=== PATIENT | female | born 1960 | race Caucasian/White ===

== ENCOUNTER 2020-06-12 16:16 | Inpatient (IN) ==
[2020-06-12] MEDS ORDERED: Naloxone 0.4 MG/ML INJ IVP PRN (20:33)
[2020-06-12] MEDS ORDERED: *HR* Promethazine 25 MG/ML VIAL IM PRN (20:33)
[2020-06-12] MEDS ORDERED: Ondansetron 4 MG/2 ML VIAL IVP PRN (20:33)
[2020-06-12] MEDS ORDERED: Ipratropium/Albuterol Neb 3 ML IH PRN (21:05)
[2020-06-12] MEDS ORDERED: Azithromycin 500 MG in 0.9 % Sodium Chloride 250 ML IVPB ONE (21:06)
[2020-06-12] MEDS ORDERED: cefTRIAXone 1,000 MG in Water for inj. (sterile) 10 ML IVP ONE (21:06)
[2020-06-12] MEDS ORDERED: Perflutren Lipid Microsphere 1.3 ML in 0.9 % Sodium Chloride 8.7 ML IVP PRN (21:11)
[2020-06-12] MEDS ORDERED: D5% in Water 1,000 ML IVC PRN (22:15)
[2020-06-12] MEDS ORDERED: *HR* Dextrose 50 % in Water (Vial) 50 ML VIAL IVP PRN (22:15)
[2020-06-12] MEDS ORDERED: Dextrose Gel 15 GM/37.5 ML TUBE PO PRN ×2 (22:15)
[2020-06-12 23:04] LABS: Adenovirus Not Detected (Not Detect); Bordetella Pertussis Not Detected (Not Detect); Chlamydophila pneumoniae Not Detected (Not Detect); Coronavirus 229E Not Detected (Not Detect); Coronavirus HKU1 Not Detected (Not Detect); Coronavirus NL63 Not Detected (Not Detect); Coronavirus OC43 Not Detected (Not Detect); Human Metapneumovirus Not Detected (Not Detect); Human Rhinovirus/Enterovirus Not Detected (Not Detect); Influenza A Subtype 2009 H1 Not Detected (Not Detect); Influenza B Not Detected (Not Detect); Mycoplasma pneumoniae Not Detected (Not Detect); Parainfluenza Virus 1 Not Detected (Not Detect); Parainfluenza Virus 2 Not Detected (Not Detect); Parainfluenza Virus 3 Not Detected (Not Detect); Parainfluenza Virus 4 Not Detected (Not Detect); Respiratory Syncytial Virus Not Detected (Not Detect); SARS-CoV-2 Not Detected (Not Detect)
[2020-06-13] MEDS: Ipratropium/Albuterol Neb 3 ML IH SCH ×7 (00:14→22:58)
[2020-06-13] MEDS: Insulin LISPRO 300 UNITS/3 ML VIAL SUBQ SCH ×5 (01:01→23:33)
[2020-06-13] MEDS: Melatonin 3 MG TABLET PO PRN (01:54)
[2020-06-13 04:49] LABS: Eosinophils % 1.9 %
[2020-06-13 04:51] LABS: Basophils # 0.1 K/mcL (0.0-0.2); Basophils % 0.5 %; Eosinophils # 0.2 K/mcL (0.0-0.6); Hematocrit 40.6 % (35.3-44.9); Hemoglobin 10.7 g/dL (11.5-15.4); Immature Granulocytes % 1.8 % (0-4); Lymphocytes % 8.5 %; Mean Corpuscular HGB Conc 26.4 g/dL (31.6-35.5); Mean Corpuscular Hemoglobin 25.2 pg (28.0-33.3); Mean Corpuscular Volume 95.8 fL (83.0-100.0); Mean Platelet Volume 11.2 fL (9.4-12.4); Monocytes % 8.4 %; Neutrophils # 9.3 K/mcL (1.6-8.9); Nucleated Red Blood Cells 0.4 /100 WBC (0); Platelet Count 262 K/mcL (140-400); Red Blood Count 4.24 M/mcL (3.82-4.97); Red Cell Distribution Width 17.9 % (11.5-14.5); Segmented Neutrophils % 78.9 %; White Blood Count 11.8 K/mcL (4.3-11.1)
[2020-06-13 05:00] LABS: INR 1.1; Prothrombin Time 12.6 Seconds (9.4-12.1)
[2020-06-13 05:08] LABS: Alanine Aminotransferase 9 Units/L (7-52); Albumin 3.7 g/dL (3.5-5.7); Albumin/Globulin Ratio 1.2 (1.1-2.2); Alkaline Phosphatase 87 Units/L (34-104); Aspartate Amino Transferase 10 Units/L (13-39); BUN/Creatinine Ratio 40 (6-26); Bilirubin,Total 0.4 mg/dL (0.3-1.0); Blood Urea Nitrogen 21 mg/dL (8-23); Calcium 8.9 mg/dL (8.6-10.3); Carbon Dioxide 43 mEq/L (23-29); Chloride 100 mEq/L (98-107); Chol/HDL Ratio 2.1 (0-4.9); Cholesterol 112 mg/dL (< 200); Globulin 3.1 g/dL (2.4-3.5); Glucose 141 mg/dL (70-105); HDL Cholesterol 53 mg/dL (40-59); LDL Cholesterol,Calculated 35 mg/dL (< 100); Magnesium 2.2 mg/dL (1.6-2.6); Osmolality,Calculated 305 (280-300); Potassium 4.3 mEq/L (3.5-5.1); Sodium 145 mEq/L (136-145); Total Protein 6.8 g/dL (6.4-8.9); Triglycerides 121 mg/dL (< 150); eGFR For African Americans > 60 (> 60); eGFR For Non-African Americans > 60 (> 60)
[2020-06-13 05:10] LABS: Platelet Estimate Normal (Normal); Stomatocytes 1+ (Not Present)
[2020-06-13 05:11] LABS: Anisocytosis 1+ (Not Present); Hypochromasia Present (Not Present); Poikilocytosis 1+ (Not Present); Toxic Granulation Present (Not Present)
[2020-06-13] MEDS: *HR* Enoxaparin 40 MG/0.4 ML SYRINGE SQ SCH (06:01)
[2020-06-13 06:28] LABS: ABG Base Excess 17 mEq/L (-2 to 3); ABG HCO3 52 mEq/L (21-27); ABG Oxygen Saturation 89 % (95-98); ABG PCO2 132 mmHg (35-45); ABG PO2 75 mmHg (85-104); ABG TCO2 > 50 mEq/L (20-26)
[2020-06-13] MEDS ORDERED: *HR* LORazepam 2 MG/ML VIAL ONE ×2 (06:45→18:03)
[2020-06-13] MEDS: *HR* LORazepam 2 MG/ML VIAL IVP ONE ×2 (06:49→06:50)
[2020-06-13] MEDS: Budesonide/Formoterol 160/4.5 1 PUFF INH IH SCH (07:43)
[2020-06-13] MEDS: Furosemide 40 MG/4 ML VIAL IVP SCH ×2 (08:18→21:14)
[2020-06-13] MEDS: Dexamethasone Sodium Phos/PF 10 MG/ML VIAL IVP SCH (08:18)
[2020-06-13] MEDS: cefTRIAXone 1,000 MG in Water for inj. (sterile) 10 ML IVP SCH (08:19)
[2020-06-13 09:22] LABS: ABG Base Excess 20 mEq/L (-2 to 3); ABG HCO3 54 mEq/L (21-27); ABG Oxygen Saturation 91 % (95-98); ABG PCO2 123 mmHg (35-45); ABG PH 7.25 pH Units (7.32-7.45); ABG PO2 80 mmHg (85-104); ABG TCO2 > 50 mEq/L (20-26); Blood Gas VT 500 cc
[2020-06-13] MEDS: Aspirin 81 MG TAB.CHEW PO SCH (09:30)
[2020-06-13] MEDS: Dexmedetomidine HCl 400 MCG/100 ML MLS IVC SCH ×3 (10:26→23:12)
[2020-06-13 11:28] LABS: ABG Base Excess 21 mEq/L (-2 to 3); ABG HCO3 53 mEq/L (21-27); ABG Oxygen Saturation 90 % (95-98); ABG PCO2 105 mmHg (35-45); ABG PH 7.31 pH Units (7.32-7.45); ABG PO2 71 mmHg (85-104); ABG TCO2 > 50 mEq/L (20-26)
[2020-06-13 14:32] LABS: ABG Base Excess 21 mEq/L (-2 to 3); ABG HCO3 52 mEq/L (21-27); ABG Oxygen Saturation 87 % (95-98); ABG PCO2 88 mmHg (35-45); ABG PH 7.37 pH Units (7.32-7.45); ABG PO2 59 mmHg (85-104); ABG TCO2 > 50 mEq/L (20-26); Blood Gas Modality avaps; Blood Gas VT 500 cc
[2020-06-13] MEDS ORDERED: Isovue-370 500 ML BOTTLE IVP ONE (16:58)
[2020-06-13] MEDS ORDERED: *HR* LORazepam 2 MG/ML VIAL IVP ONE (18:04)
[2020-06-13 18:38] LABS: ABG Base Excess 20 mEq/L (-2 to 3); ABG HCO3 50 mEq/L (21-27); ABG Oxygen Saturation 92 % (95-98); ABG PCO2 80 mmHg (35-45); ABG PO2 69 mmHg (85-104); ABG TCO2 > 50 mEq/L (20-26); Blood Gas Modality avaps; Blood Gas VT 550 cc
[2020-06-13] MEDS: Famotidine 20 MG TABLET PO SCH (21:14)
[2020-06-13] MEDS: Azithromycin 500 MG in 0.9 % Sodium Chloride 250 ML IVPB SCH (21:14)
[2020-06-13] MEDS ORDERED: HydrOXYzine 100 MG/2 ML VIAL IM PRN (23:33)
[2020-06-14] MEDS ORDERED: *HR* LORazepam 2 MG/ML VIAL IVP STA (02:15)
[2020-06-14] MEDS ORDERED: *HR* LORazepam 2 MG/ML VIAL ONE (02:18)
[2020-06-14] MEDS: Dexmedetomidine HCl 400 MCG/100 ML MLS IVC SCH ×6 (02:36→22:12)
[2020-06-14] MEDS: Ipratropium/Albuterol Neb 3 ML IH SCH ×6 (04:06→23:26)
[2020-06-14 05:26] LABS: Hematocrit 37.5 % (35.3-44.9); Hemoglobin 10.4 g/dL (11.5-15.4); Mean Corpuscular HGB Conc 27.7 g/dL (31.6-35.5); Mean Corpuscular Hemoglobin 25.4 pg (28.0-33.3); Mean Corpuscular Volume 91.5 fL (83.0-100.0); Mean Platelet Volume 11.6 fL (9.4-12.4); Platelet Count 213 K/mcL (140-400); Red Cell Distribution Width 17.3 % (11.5-14.5); White Blood Count 9.6 K/mcL (4.3-11.1)
[2020-06-14 05:53] LABS: BUN/Creatinine Ratio 33 (6-26); Blood Urea Nitrogen 22 mg/dL (8-23); Calcium 8.8 mg/dL (8.6-10.3); Carbon Dioxide > 45 mEq/L (23-29); Chloride 92 mEq/L (98-107); Glucose 218 mg/dL (70-105); Osmolality,Calculated 304 (280-300); Potassium 4.1 mEq/L (3.5-5.1); Sodium 142 mEq/L (136-145); eGFR For African Americans > 60 (> 60); eGFR For Non-African Americans > 60 (> 60)
[2020-06-14] MEDS: *HR* Enoxaparin 40 MG/0.4 ML SYRINGE SQ SCH (06:34)
[2020-06-14] MEDS: Insulin LISPRO 300 UNITS/3 ML VIAL SUBQ SCH ×3 (06:42→16:42)
[2020-06-14] MEDS: Tiotropium 10 INH DOSE IH SCH (07:53)
[2020-06-14] MEDS: Budesonide/Formoterol 160/4.5 1 PUFF INH IH SCH (08:02)
[2020-06-14] MEDS: Furosemide 40 MG/4 ML VIAL IVP SCH ×3 (08:05→19:34)
[2020-06-14] MEDS: Famotidine 20 MG TABLET PO SCH ×3 (08:05→19:34)
[2020-06-14] MEDS: Aspirin 81 MG TAB.CHEW PO SCH (08:05)
[2020-06-14] MEDS: Dexamethasone Sodium Phos/PF 10 MG/ML VIAL IVP SCH (08:05)
[2020-06-14] MEDS: cefTRIAXone 1,000 MG in Water for inj. (sterile) 10 ML IVP SCH (08:06)
[2020-06-14] MEDS ORDERED: LOSARTAN POTASSIUM 50 MG PO SCH (09:00)
[2020-06-14] MEDS: Acetaminophen 325 MG TABLET PO PRN ×2 (19:19→19:34)
[2020-06-14] MEDS: Melatonin 3 MG TABLET PO PRN ×2 (19:20→19:34)
[2020-06-14] MEDS: Azithromycin 500 MG in 0.9 % Sodium Chloride 250 ML IVPB SCH (22:13)
[2020-06-15] MEDS: Insulin LISPRO 300 UNITS/3 ML VIAL SUBQ SCH ×4 (01:25→17:39)
[2020-06-15 03:22] LABS: Basophils % 0.4 %; Hematocrit 40.2 % (35.3-44.9)
[2020-06-15 03:24] LABS: Eosinophils % 0.4 %; Hemoglobin 11.3 g/dL (11.5-15.4); Immature Granulocytes % 0.9 % (0-4); Lymphocytes % 12.2 %; Mean Corpuscular HGB Conc 28.1 g/dL (31.6-35.5); Mean Corpuscular Hemoglobin 25.5 pg (28.0-33.3); Mean Corpuscular Volume 90.5 fL (83.0-100.0); Mean Platelet Volume 11.1 fL (9.4-12.4); Monocytes # 0.7 K/mcL (0.0-1.3); Monocytes % 8.8 %; Neutrophils # 6.3 K/mcL (1.6-8.9); Platelet Count 243 K/mcL (140-400); Red Blood Count 4.44 M/mcL (3.82-4.97); Red Cell Distribution Width 17.1 % (11.5-14.5); Segmented Neutrophils % 77.3 %; White Blood Count 8.2 K/mcL (4.3-11.1)
[2020-06-15 03:29] LABS: VBG HCO3 47 mEq/L (21-27); VBG PCO2 73 mmHg (41-51); VBG PH 7.41 pH Units (7.32-7.42); VBG PO2 170 mmHg (25-50)
[2020-06-15] MEDS: Dexmedetomidine HCl 400 MCG/100 ML MLS IVC SCH (03:50)
[2020-06-15] MEDS: Ipratropium/Albuterol Neb 3 ML IH SCH ×6 (04:04→23:13)
[2020-06-15 04:09] LABS: BUN/Creatinine Ratio 41 (6-26); Blood Urea Nitrogen 24 mg/dL (8-23); Calcium 9.3 mg/dL (8.6-10.3); Carbon Dioxide 45 mEq/L (23-29); Chloride 92 mEq/L (98-107); Glucose 202 mg/dL (70-105); Osmolality,Calculated 304 (280-300); Potassium 3.9 mEq/L (3.5-5.1); Sodium 142 mEq/L (136-145); eGFR For African Americans > 60 (> 60); eGFR For Non-African Americans > 60 (> 60)
[2020-06-15 04:16] LABS: Hypochromasia Present (Not Present)
[2020-06-15 04:17] LABS: Anisocytosis 1+ (Not Present); Platelet Estimate Normal (Normal); Stomatocytes 1+ (Not Present)
[2020-06-15] MEDS: *HR* Enoxaparin 40 MG/0.4 ML SYRINGE SQ SCH (05:18)
[2020-06-15] MEDS: Tiotropium 10 INH DOSE IH SCH (07:44)
[2020-06-15] MEDS: Budesonide/Formoterol 160/4.5 1 PUFF INH IH SCH (07:44)
[2020-06-15] MEDS: Acetaminophen 325 MG TABLET PO PRN (10:54)
[2020-06-15] MEDS: Dexamethasone Sodium Phos/PF 10 MG/ML VIAL IVP SCH (10:55)
[2020-06-15] MEDS: Aspirin 81 MG TAB.CHEW PO SCH (10:55)
[2020-06-15] MEDS: Furosemide 40 MG/4 ML VIAL IVP SCH ×2 (10:55→20:20)
[2020-06-15] MEDS: cefTRIAXone 1,000 MG in Water for inj. (sterile) 10 ML IVP SCH (10:55)
[2020-06-15] MEDS: Famotidine 20 MG TABLET PO SCH ×2 (10:56→20:19)
[2020-06-15] MEDS: Melatonin 3 MG TABLET PO PRN (20:19)
[2020-06-15] MEDS: Azithromycin 500 MG in 0.9 % Sodium Chloride 250 ML IVPB SCH (21:54)
[2020-06-16] MEDS: Insulin LISPRO 300 UNITS/3 ML VIAL SUBQ SCH ×5 (00:14→21:09)
[2020-06-16 03:10] LABS: Hematocrit 42.5 % (35.3-44.9); Mean Corpuscular HGB Conc 28.2 g/dL (31.6-35.5); Mean Corpuscular Hemoglobin 25.1 pg (28.0-33.3); Mean Corpuscular Volume 88.9 fL (83.0-100.0); Mean Platelet Volume 11.5 fL (9.4-12.4); Platelet Count 318 K/mcL (140-400); Red Blood Count 4.78 M/mcL (3.82-4.97); Red Cell Distribution Width 17.8 % (11.5-14.5); White Blood Count 13.9 K/mcL (4.3-11.1)
[2020-06-16 03:15] LABS: BUN/Creatinine Ratio 40 (6-26); Blood Urea Nitrogen 23 mg/dL (8-23); Carbon Dioxide 45 mEq/L (23-29); Chloride 92 mEq/L (98-107); Glucose 168 mg/dL (70-105); Osmolality,Calculated 306 (280-300); Potassium 3.3 mEq/L (3.5-5.1); Sodium 144 mEq/L (136-145); eGFR For African Americans > 60 (> 60); eGFR For Non-African Americans > 60 (> 60)
[2020-06-16] MEDS: Ipratropium/Albuterol Neb 3 ML IH SCH ×5 (04:02→20:30)
[2020-06-16 05:23] LABS: ABG Base Excess 16 mEq/L (-2 to 3); ABG HCO3 45 mEq/L (21-27); ABG Oxygen Saturation 89 % (95-98); ABG PCO2 71 mmHg (35-45); ABG PH 7.41 pH Units (7.32-7.45); ABG PO2 59 mmHg (85-104); ABG TCO2 47 mEq/L (20-26)
[2020-06-16] MEDS: *HR* Enoxaparin 40 MG/0.4 ML SYRINGE SQ SCH (05:39)
[2020-06-16] MEDS: predniSONE 20 MG TABLET PO SCH (07:57)
[2020-06-16] MEDS: Aspirin 81 MG TAB.CHEW PO SCH (07:57)
[2020-06-16] MEDS: Famotidine 20 MG TABLET PO SCH ×2 (07:57→21:10)
[2020-06-16] MEDS: Furosemide 40 MG/4 ML VIAL IVP SCH ×2 (07:58→21:08)
[2020-06-16] MEDS: cefTRIAXone 1,000 MG in Water for inj. (sterile) 10 ML IVP SCH (07:59)
[2020-06-16] MEDS: Tiotropium 10 INH DOSE IH SCH (08:03)
[2020-06-16] MEDS: Budesonide/Formoterol 160/4.5 1 PUFF INH IH SCH (08:04)
[2020-06-16] MEDS: Acetaminophen 325 MG TABLET PO PRN (12:16)
[2020-06-16] MEDS ORDERED: Dextrose Gel 15 GM/37.5 ML TUBE PO PRN (12:25)
[2020-06-17] MEDS: Ipratropium/Albuterol Neb 3 ML IH SCH ×7 (00:20→23:24)
[2020-06-17] MEDS: *HR* Enoxaparin 40 MG/0.4 ML SYRINGE SQ SCH (05:23)
[2020-06-17 05:26] LABS: Basophils % 0.2 %; Eosinophils # 0.2 K/mcL (0.0-0.6); Eosinophils % 1.2 %; Hematocrit 41.6 % (35.3-44.9); Hemoglobin 11.4 g/dL (11.5-15.4); Immature Granulocytes % 0.7 % (0-4); Lymphocytes # 1.6 K/mcL (0.6-4.6); Lymphocytes % 11.4 %; Mean Corpuscular HGB Conc 27.4 g/dL (31.6-35.5); Mean Corpuscular Hemoglobin 24.5 pg (28.0-33.3); Mean Corpuscular Volume 89.5 fL (83.0-100.0); Mean Platelet Volume 10.3 fL (9.4-12.4); Monocytes # 1.2 K/mcL (0.0-1.3); Monocytes % 8.8 %; Platelet Count 249 K/mcL (140-400); Red Blood Count 4.65 M/mcL (3.82-4.97); Red Cell Distribution Width 17.6 % (11.5-14.5); Segmented Neutrophils % 77.7 %; White Blood Count 13.7 K/mcL (4.3-11.1)
[2020-06-17 05:49] LABS: Neutrophils # 10.6 K/mcL (1.6-8.9)
[2020-06-17 06:08] LABS: BUN/Creatinine Ratio 42 (6-26); Blood Urea Nitrogen 22 mg/dL (8-23); Carbon Dioxide > 45 mEq/L (23-29); Chloride 90 mEq/L (98-107); Glucose 148 mg/dL (70-105); Osmolality,Calculated 302 (280-300); Potassium 2.9 mEq/L (3.5-5.1); Sodium 143 mEq/L (136-145); eGFR For African Americans > 60 (> 60); eGFR For Non-African Americans > 60 (> 60)
[2020-06-17 06:28] LABS: Anisocytosis 1+ (Not Present); Hypochromasia Present (Not Present); Platelet Estimate Normal (Normal)
[2020-06-17] MEDS: Tiotropium 10 INH DOSE IH SCH (07:36)
[2020-06-17] MEDS: Budesonide/Formoterol 160/4.5 1 PUFF INH IH SCH (07:40)
[2020-06-17] MEDS ORDERED: Potassium Chloride 40 MEQ, Lidocaine 1% 2 ML in 0.9 % Sodium Chloride 500 ML IVPB ONE (07:46)
[2020-06-17] MEDS ORDERED: Potassium Chloride Elixir 20 MEQ/15 ML UDC PO ONE (07:46)
[2020-06-17] MEDS: Aspirin 81 MG TAB.CHEW PO SCH (08:36)
[2020-06-17] MEDS: predniSONE 20 MG TABLET PO SCH (08:36)
[2020-06-17] MEDS: Famotidine 20 MG TABLET PO SCH ×2 (08:36→21:54)
[2020-06-17] MEDS: cefTRIAXone 1,000 MG in Water for inj. (sterile) 10 ML IVP SCH (08:36)
[2020-06-17] MEDS: Furosemide 40 MG/4 ML VIAL IVP SCH ×2 (08:36→21:56)
[2020-06-17] MEDS: Insulin LISPRO 300 UNITS/3 ML VIAL SUBQ SCH ×4 (08:41→21:56)
[2020-06-17 14:49] LABS: Adenovirus Not Detected (Not Detect); Bordetella Pertussis Not Detected (Not Detect); Chlamydophila pneumoniae Not Detected (Not Detect); Coronavirus 229E Not Detected (Not Detect); Coronavirus HKU1 Not Detected (Not Detect); Coronavirus NL63 Not Detected (Not Detect); Coronavirus OC43 Not Detected (Not Detect); Human Metapneumovirus Not Detected (Not Detect); Human Rhinovirus/Enterovirus Not Detected (Not Detect); Influenza A Subtype 2009 H1 Not Detected (Not Detect); Influenza B Not Detected (Not Detect); Mycoplasma pneumoniae Not Detected (Not Detect); Parainfluenza Virus 1 Not Detected (Not Detect); Parainfluenza Virus 2 Not Detected (Not Detect); Parainfluenza Virus 3 Not Detected (Not Detect); Parainfluenza Virus 4 Not Detected (Not Detect); Respiratory Syncytial Virus Not Detected (Not Detect); SARS-CoV-2 Not Detected (Not Detect)
[2020-06-17] MEDS: Acetaminophen 325 MG TABLET PO PRN (15:16)
[2020-06-18 02:14] LABS: Basophils % 0.2 %; Eosinophils % 0.6 %; Red Cell Distribution Width 17.3 % (11.5-14.5)
[2020-06-18 02:15] LABS: Eosinophils # 0.1 K/mcL (0.0-0.6); Hematocrit 41.2 % (35.3-44.9); Hemoglobin 11.4 g/dL (11.5-15.4); Immature Granulocytes % 0.4 % (0-4); Lymphocytes # 1.4 K/mcL (0.6-4.6); Lymphocytes % 10.5 %; Mean Corpuscular HGB Conc 27.7 g/dL (31.6-35.5); Mean Corpuscular Hemoglobin 24.5 pg (28.0-33.3); Mean Corpuscular Volume 88.6 fL (83.0-100.0); Mean Platelet Volume 10.4 fL (9.4-12.4); Monocytes # 1.4 K/mcL (0.0-1.3); Monocytes % 10.2 %; Neutrophils # 10.5 K/mcL (1.6-8.9); Platelet Count 251 K/mcL (140-400); Red Blood Count 4.65 M/mcL (3.82-4.97); Segmented Neutrophils % 78.1 %; White Blood Count 13.4 K/mcL (4.3-11.1)
[2020-06-18 02:23] LABS: Anisocytosis 1+ (Not Present); Hypochromasia Present (Not Present); Platelet Estimate Normal (Normal)
[2020-06-18 02:46] LABS: BUN/Creatinine Ratio 42 (6-26); Blood Urea Nitrogen 22 mg/dL (8-23); Carbon Dioxide 44 mEq/L (23-29); Chloride 93 mEq/L (98-107); Glucose 170 mg/dL (70-105); Osmolality,Calculated 303 (280-300); Potassium 3.5 mEq/L (3.5-5.1); Sodium 143 mEq/L (136-145); eGFR For African Americans > 60 (> 60); eGFR For Non-African Americans > 60 (> 60)
[2020-06-18] MEDS: Ipratropium/Albuterol Neb 3 ML IH SCH ×4 (03:46→15:36)
[2020-06-18] MEDS: *HR* Enoxaparin 40 MG/0.4 ML SYRINGE SQ SCH (05:50)
[2020-06-18] MEDS: Budesonide/Formoterol 160/4.5 1 PUFF INH IH SCH (07:47)
[2020-06-18] MEDS: Tiotropium 10 INH DOSE IH SCH (07:50)
[2020-06-18] MEDS: Aspirin 81 MG TAB.CHEW PO SCH (09:08)
[2020-06-18] MEDS: Famotidine 20 MG TABLET PO SCH (09:08)
[2020-06-18] MEDS: Insulin LISPRO 300 UNITS/3 ML VIAL SUBQ SCH ×2 (09:09→12:05)
[2020-06-18] MEDS: Furosemide 40 MG/4 ML VIAL IVP SCH (09:09)
[2020-06-18] MEDS: cefTRIAXone 1,000 MG in Water for inj. (sterile) 10 ML IVP SCH (09:09)
[2020-06-18] MEDS: predniSONE 20 MG TABLET PO SCH (09:09)
[2020-06-18 11:55] VITALS: BP 153/60
== END 2020-06-18 16:58 | disposition home health service (06) | DRG 291 ==
LOC: 2NENU → SUATTDRO 18:45
PROVIDERS: ADMIT Internal Medicine; ATTEND Internal Medicine

== ENCOUNTER 2020-06-26 20:46 | Inpatient (IN) ==
[2020-06-27] MEDS ORDERED: D5% in Water 1,000 ML IVC PRN (00:45)
[2020-06-27] MEDS ORDERED: Dextrose Gel 15 GM/37.5 ML TUBE PO PRN ×2 (00:45)
[2020-06-27] MEDS ORDERED: *HR* Dextrose 50 % in Water (Vial) 50 ML VIAL IVP PRN (00:45)
[2020-06-27] MEDS ORDERED: Furosemide 40 MG/4 ML VIAL IVP ONE (00:46)
[2020-06-27] MEDS: Insulin DETEMIR 100 UNIT/ML X5UNITS SUBQ SCH ×2 (01:09→19:33)
[2020-06-27] MEDS ORDERED: Naloxone 0.4 MG/ML INJ IVP PRN (01:30)
[2020-06-27 03:20] LABS: Eosinophils % 0.1 %; Hematocrit 44.7 % (35.3-44.9); Immature Granulocytes % 1.4 % (0-4); Nucleated Red Blood Cells 0.1 /100 WBC (0)
[2020-06-27 03:22] LABS: Basophils % 0.2 %; Hemoglobin 13.1 g/dL (11.5-15.4); Lymphocytes # 0.4 K/mcL (0.6-4.6); Mean Corpuscular HGB Conc 29.3 g/dL (31.6-35.5); Mean Corpuscular Hemoglobin 25.7 pg (28.0-33.3); Mean Corpuscular Volume 87.8 fL (83.0-100.0); Mean Platelet Volume 12.2 fL (9.4-12.4); Monocytes # 0.2 K/mcL (0.0-1.3); Monocytes % 1.5 %; Neutrophils # 12.9 K/mcL (1.6-8.9); Platelet Count 254 K/mcL (140-400); Red Blood Count 5.09 M/mcL (3.82-4.97); Red Cell Distribution Width 19.3 % (11.5-14.5); Segmented Neutrophils % 93.8 %; White Blood Count 13.8 K/mcL (4.3-11.1)
[2020-06-27 03:38] LABS: Anisocytosis 1+ (Not Present); Hypochromasia Present (Not Present); Stomatocytes 1+ (Not Present)
[2020-06-27 03:39] LABS: Platelet Estimate Normal (Normal); Polychromasia 1+ (Not Present)
[2020-06-27 03:43] LABS: BUN/Creatinine Ratio 42 (6-26); Blood Urea Nitrogen 38 mg/dL (8-23); Calcium 9.7 mg/dL (8.6-10.3); Carbon Dioxide 30 mEq/L (23-29); Chloride 94 mEq/L (98-107); Glucose 413 mg/dL (70-105); Osmolality,Calculated 309 (280-300); Potassium 4.7 mEq/L (3.5-5.1); Sodium 136 mEq/L (136-145); eGFR For African Americans > 60 (> 60); eGFR For Non-African Americans > 60 (> 60)
[2020-06-27] MEDS: Insulin LISPRO 300 UNITS/3 ML VIAL SUBQ SCH ×4 (04:43→16:09)
[2020-06-27] MEDS: Ipratropium/Albuterol Neb 3 ML IH SCH ×5 (04:46→20:24)
[2020-06-27] MEDS: MethylPREDNISolone 40 MG/ML VIAL IVP SCH ×4 (05:40→23:49)
[2020-06-27] MEDS ORDERED: *HR* Heparin 5,000 UNIT/ML VIAL IVP PRN ×2 (06:39)
[2020-06-27] MEDS ORDERED: *HR* Heparin 5,000 UNIT/ML VIAL IVP ONE (06:39)
[2020-06-27] MEDS ORDERED: cefTRIAXone 1,000 MG in 0.9 % Sodium Chloride Mini Bag 100 ML IVPB SCH (07:00)
[2020-06-27] MEDS: Furosemide 40 MG/4 ML VIAL IVP SCH ×2 (07:45→19:32)
[2020-06-27] MEDS: Azithromycin 500 MG in 0.9 % Sodium Chloride 250 ML IVPB SCH (07:49)
[2020-06-27] MEDS: Heparin 25,000UNIT/250ML 1/2NS 25,000 UNIT/250 ML IV.SOLN IVC SCH (07:50)
[2020-06-27] MEDS ORDERED: predniSONE 20 MG TABLET PO SCH (09:00)
[2020-06-27] MEDS ORDERED: Perflutren Lipid Microsphere 1.3 ML in 0.9 % Sodium Chloride 8.7 ML IVP PRN (09:17)
[2020-06-27 10:41] LABS: Heparin anti-factor XA UFH 0.33 IU/mL (0.30-0.70)
[2020-06-27 10:42] LABS: INR 1.1; Prothrombin Time 13.2 Seconds (9.4-12.1)
[2020-06-27 10:44] LABS: Activated Partial Thrombo Time 34.4 Seconds (26.0-36.0)
[2020-06-27] MEDS: Aspirin Enteric Coated 81 MG Tablet PO SCH (11:08)
[2020-06-27] MEDS ORDERED: Insulin LISPRO 300 UNITS/3 ML VIAL SUBQ SCH (21:00)
[2020-06-28] MEDS: Ipratropium/Albuterol Neb 3 ML IH SCH ×7 (00:05→23:28)
[2020-06-28 01:56] LABS: Basophils % 0.1 %; Hematocrit 41.6 % (35.3-44.9); Hemoglobin 12.4 g/dL (11.5-15.4); Immature Granulocytes % 0.9 % (0-4); Lymphocytes # 0.6 K/mcL (0.6-4.6); Lymphocytes % 3.3 %; Mean Corpuscular HGB Conc 29.8 g/dL (31.6-35.5); Mean Corpuscular Hemoglobin 26.1 pg (28.0-33.3); Mean Corpuscular Volume 87.4 fL (83.0-100.0); Mean Platelet Volume 11.6 fL (9.4-12.4); Monocytes % 5.8 %; Neutrophils # 15.2 K/mcL (1.6-8.9); Platelet Count 256 K/mcL (140-400); Red Blood Count 4.76 M/mcL (3.82-4.97); Segmented Neutrophils % 89.9 %; White Blood Count 16.9 K/mcL (4.3-11.1)
[2020-06-28 01:57] LABS: Alanine Aminotransferase 17 Units/L (7-52); Albumin 3.7 g/dL (3.5-5.7); Albumin/Globulin Ratio 1.1 (1.1-2.2); Alkaline Phosphatase 102 Units/L (34-104); Aspartate Amino Transferase 11 Units/L (13-39); BUN/Creatinine Ratio 41 (6-26); Bilirubin,Total 0.5 mg/dL (0.3-1.0); Blood Urea Nitrogen 40 mg/dL (8-23); Calcium 9.6 mg/dL (8.6-10.3); Carbon Dioxide 33 mEq/L (23-29); Chloride 96 mEq/L (98-107); Globulin 3.3 g/dL (2.4-3.5); Glucose 334 mg/dL (70-105); Osmolality,Calculated 313 (280-300); Sodium 140 mEq/L (136-145); eGFR For African Americans > 60 (> 60); eGFR For Non-African Americans 58 (> 60)
[2020-06-28 01:58] LABS: INR 1.1; Prothrombin Time 12.8 Seconds (9.4-12.1)
[2020-06-28] MEDS: MethylPREDNISolone 40 MG/ML VIAL IVP SCH ×3 (05:38→16:38)
[2020-06-28] MEDS: Heparin 25,000UNIT/250ML 1/2NS 25,000 UNIT/250 ML IV.SOLN IVC SCH (05:38)
[2020-06-28] MEDS: Insulin LISPRO 300 UNITS/3 ML VIAL SUBQ SCH ×4 (07:47→21:36)
[2020-06-28] MEDS ORDERED: Insulin LISPRO 300 UNITS/3 ML VIAL SUBQ SCH (07:51)
[2020-06-28] MEDS ORDERED: Bisacodyl 10 MG RECTAL SUPPOSITORY RC PRN (07:55)
[2020-06-28] MEDS ORDERED: Tiotropium 10 INH DOSE IH SCH (09:00)
[2020-06-28] MEDS: Aspirin Enteric Coated 81 MG Tablet PO SCH (09:26)
[2020-06-28] MEDS: Gabapentin 400 MG CAPSULE PO SCH ×3 (09:26→21:34)
[2020-06-28] MEDS: Azithromycin 500 MG in 0.9 % Sodium Chloride 250 ML IVPB SCH (09:26)
[2020-06-28] MEDS: Furosemide 40 MG/4 ML VIAL IVP SCH ×2 (09:26→16:35)
[2020-06-28] MEDS: Budesonide/Formoterol 160/4.5 1 PUFF INH IH SCH ×2 (11:26→19:55)
[2020-06-28] MEDS: Insulin DETEMIR 100 UNIT/ML X5UNITS SUBQ SCH (21:35)
[2020-06-28] MEDS: *HR* Heparin 5,000 UNIT/ML VIAL SQ SCH (21:35)
[2020-06-29] MEDS: MethylPREDNISolone 40 MG/ML VIAL IVP SCH ×3 (00:23→16:44)
[2020-06-29 03:47] LABS: Alanine Aminotransferase 17 Units/L (7-52); Albumin 3.6 g/dL (3.5-5.7); Albumin/Globulin Ratio 1.2 (1.1-2.2); Alkaline Phosphatase 89 Units/L (34-104); Aspartate Amino Transferase 9 Units/L (13-39); BUN/Creatinine Ratio 49 (6-26); Bilirubin,Total 0.5 mg/dL (0.3-1.0); Blood Urea Nitrogen 47 mg/dL (8-23); Calcium 9.3 mg/dL (8.6-10.3); Carbon Dioxide 33 mEq/L (23-29); Chloride 96 mEq/L (98-107); Globulin 3.1 g/dL (2.4-3.5); Glucose 341 mg/dL (70-105); Osmolality,Calculated 314 (280-300); Potassium 4.3 mEq/L (3.5-5.1); Sodium 139 mEq/L (136-145); Total Protein 6.7 g/dL (6.4-8.9); eGFR For African Americans > 60 (> 60); eGFR For Non-African Americans > 60 (> 60)
[2020-06-29] MEDS: Ipratropium/Albuterol Neb 3 ML IH SCH ×6 (03:56→23:37)
[2020-06-29] MEDS: *HR* Heparin 5,000 UNIT/ML VIAL SQ SCH ×2 (05:30→14:54)
[2020-06-29] MEDS: Budesonide/Formoterol 160/4.5 1 PUFF INH IH SCH ×2 (07:36→20:15)
[2020-06-29] MEDS: Insulin LISPRO 300 UNITS/3 ML VIAL SUBQ SCH ×7 (08:17→20:08)
[2020-06-29] MEDS: Furosemide 40 MG/4 ML VIAL IVP SCH ×2 (08:19→16:42)
[2020-06-29] MEDS: Gabapentin 400 MG CAPSULE PO SCH ×3 (08:22→20:06)
[2020-06-29] MEDS: Aspirin Enteric Coated 81 MG Tablet PO SCH (08:22)
[2020-06-29 08:39] LABS: Estimated Average Glucose 180 mg/dl; Hemoglobin A1C 7.9 %
[2020-06-29] MEDS ORDERED: Azithromycin 250 MG TABLET PO ONE (09:00)
[2020-06-29] MEDS ORDERED: Isovue-370 500 ML BOTTLE IVP ONE (11:49)
[2020-06-29] MEDS ORDERED: *HR* Heparin 5,000 UNIT/ML VIAL IVP ONE (14:24)
[2020-06-29] MEDS ORDERED: *HR* Heparin 5,000 UNIT/ML VIAL IVP PRN ×2 (14:24)
[2020-06-29 15:14] LABS: Mean Platelet Volume 11.8 fL (9.4-12.4)
[2020-06-29 15:15] LABS: Hematocrit 42.7 % (35.3-44.9); Hemoglobin 12.1 g/dL (11.5-15.4); Mean Corpuscular HGB Conc 28.3 g/dL (31.6-35.5); Mean Corpuscular Hemoglobin 25.2 pg (28.0-33.3); Platelet Count 261 K/mcL (140-400); Red Cell Distribution Width 18.9 % (11.5-14.5); White Blood Count 18.1 K/mcL (4.3-11.1)
[2020-06-29 15:26] LABS: Heparin anti-factor XA UFH 0.04 IU/mL (0.30-0.70)
[2020-06-29] MEDS: Heparin 25,000UNIT/250ML 1/2NS 25,000 UNIT/250 ML IV.SOLN IVC SCH (15:30)
[2020-06-29] MEDS ORDERED: Ondansetron 4 MG/2 ML VIAL IVP PRN (17:16)
[2020-06-29] MEDS: Insulin DETEMIR 100 UNIT/ML X5UNITS SUBQ SCH (20:20)
[2020-06-29] MEDS ORDERED: Insulin DETEMIR 100 UNIT/ML X5UNITS SUBQ ONE (20:30)
[2020-06-30] MEDS: Ipratropium/Albuterol Neb 3 ML IH SCH ×6 (03:48→23:19)
[2020-06-30] MEDS: Heparin 25,000UNIT/250ML 1/2NS 25,000 UNIT/250 ML IV.SOLN IVC SCH (04:47)
[2020-06-30] MEDS: MethylPREDNISolone 40 MG/ML VIAL IVP SCH (05:45)
[2020-06-30] MEDS: Budesonide/Formoterol 160/4.5 1 PUFF INH IH SCH ×2 (07:27→20:26)
[2020-06-30] MEDS: Aspirin Enteric Coated 81 MG Tablet PO SCH (08:55)
[2020-06-30] MEDS: Gabapentin 400 MG CAPSULE PO SCH ×3 (08:55→22:10)
[2020-06-30] MEDS: Furosemide 40 MG/4 ML VIAL IVP SCH ×2 (08:55→17:39)
[2020-06-30] MEDS: Insulin LISPRO 300 UNITS/3 ML VIAL SUBQ SCH ×7 (08:56→22:10)
[2020-06-30] MEDS: *HR* Rivaroxaban 15 MG TABLET PO SCH (17:39)
[2020-06-30] MEDS ORDERED: Insulin DETEMIR 100 UNIT/ML X5UNITS SUBQ SCH (21:00)
[2020-06-30] MEDS: Insulin DETEMIR 100 UNIT/ML X5UNITS SUBQ SCH (22:36)
[2020-07-01] MEDS: Ipratropium/Albuterol Neb 3 ML IH SCH ×6 (03:50→23:37)
[2020-07-01 04:40] LABS: Eosinophils % 0.5 %; Immature Granulocytes % 0.8 % (0-4)
[2020-07-01 04:42] LABS: Basophils % 0.2 %; Eosinophils # 0.1 K/mcL (0.0-0.6); Hematocrit 43.3 % (35.3-44.9); Hemoglobin 12.5 g/dL (11.5-15.4); Lymphocytes # 1.5 K/mcL (0.6-4.6); Lymphocytes % 11.7 %; Mean Corpuscular HGB Conc 28.9 g/dL (31.6-35.5); Mean Corpuscular Hemoglobin 25.6 pg (28.0-33.3); Mean Corpuscular Volume 88.5 fL (83.0-100.0); Mean Platelet Volume 12.1 fL (9.4-12.4); Monocytes # 0.9 K/mcL (0.0-1.3); Monocytes % 6.8 %; Neutrophils # 10.2 K/mcL (1.6-8.9); Platelet Count 182 K/mcL (140-400); Red Blood Count 4.89 M/mcL (3.82-4.97); Red Cell Distribution Width 18.5 % (11.5-14.5); White Blood Count 12.8 K/mcL (4.3-11.1)
[2020-07-01 05:04] LABS: BUN/Creatinine Ratio 59 (6-26); Blood Urea Nitrogen 44 mg/dL (8-23); Calcium 9.2 mg/dL (8.6-10.3); Carbon Dioxide 43 mEq/L (23-29); Chloride 92 mEq/L (98-107); Glucose 167 mg/dL (70-105); Osmolality,Calculated 307 (280-300); Potassium 3.4 mEq/L (3.5-5.1); Sodium 141 mEq/L (136-145); eGFR For African Americans > 60 (> 60); eGFR For Non-African Americans > 60 (> 60)
[2020-07-01] MEDS: Budesonide/Formoterol 160/4.5 1 PUFF INH IH SCH ×2 (07:29→20:00)
[2020-07-01] MEDS: *HR* Rivaroxaban 15 MG TABLET PO SCH ×2 (08:11→17:07)
[2020-07-01] MEDS: Aspirin Enteric Coated 81 MG Tablet PO SCH (08:11)
[2020-07-01] MEDS: Gabapentin 400 MG CAPSULE PO SCH ×3 (08:12→19:53)
[2020-07-01] MEDS: Insulin LISPRO 300 UNITS/3 ML VIAL SUBQ SCH ×7 (08:12→19:53)
[2020-07-01] MEDS: Furosemide 40 MG/4 ML VIAL IVP SCH ×2 (08:13→17:07)
[2020-07-01] MEDS ORDERED: Sennosides/Docusate Sodium TABLET PO PRN (17:47)
[2020-07-01] MEDS: Insulin DETEMIR 100 UNIT/ML X5UNITS SUBQ SCH (19:53)
[2020-07-02] MEDS: Ipratropium/Albuterol Neb 3 ML IH SCH ×6 (03:47→23:53)
[2020-07-02 06:27] LABS: BUN/Creatinine Ratio 56 (6-26); Blood Urea Nitrogen 37 mg/dL (8-23); Calcium 8.9 mg/dL (8.6-10.3); Carbon Dioxide 43 mEq/L (23-29); Chloride 90 mEq/L (98-107); Glucose 219 mg/dL (70-105); Osmolality,Calculated 301 (280-300); Potassium 3.7 mEq/L (3.5-5.1); Sodium 138 mEq/L (136-145); eGFR For African Americans > 60 (> 60); eGFR For Non-African Americans > 60 (> 60)
[2020-07-02] MEDS: Budesonide/Formoterol 160/4.5 1 PUFF INH IH SCH ×2 (07:26→19:58)
[2020-07-02 07:28] LABS: VBG HCO3 42 mEq/L (21-27); VBG PCO2 56 mmHg (41-51); VBG PH 7.48 pH Units (7.32-7.42); VBG PO2 228 mmHg (25-50)
[2020-07-02] MEDS: Insulin LISPRO 300 UNITS/3 ML VIAL SUBQ SCH ×7 (09:01→21:48)
[2020-07-02] MEDS: Gabapentin 400 MG CAPSULE PO SCH ×3 (09:02→21:47)
[2020-07-02] MEDS: Furosemide 40 MG/4 ML VIAL IVP SCH (09:02)
[2020-07-02] MEDS: *HR* Rivaroxaban 15 MG TABLET PO SCH ×2 (09:02→16:51)
[2020-07-02] MEDS: Aspirin Enteric Coated 81 MG Tablet PO SCH (09:02)
[2020-07-02] MEDS: Magic Mouthwash 10 ML UD Cup PO SCH ×3 (10:19→18:18)
[2020-07-02] MEDS ORDERED: 0.9 % Sodium Chloride 250 ML IV ONE (16:17)
[2020-07-02 16:54] LABS: BUN/Creatinine Ratio 40 (6-26); Blood Urea Nitrogen 36 mg/dL (8-23); Calcium 8.4 mg/dL (8.6-10.3); Carbon Dioxide 41 mEq/L (23-29); Chloride 89 mEq/L (98-107); Glucose 245 mg/dL (70-105); Osmolality,Calculated 296 (280-300); Potassium 4.5 mEq/L (3.5-5.1); Sodium 135 mEq/L (136-145); eGFR For African Americans > 60 (> 60); eGFR For Non-African Americans > 60 (> 60)
[2020-07-02] MEDS: Sennosides/Docusate Sodium TABLET PO SCH (19:25)
[2020-07-02] MEDS: Insulin DETEMIR 100 UNIT/ML X5UNITS SUBQ SCH (21:47)
[2020-07-03] MEDS: Ipratropium/Albuterol Neb 3 ML IH SCH ×6 (03:53→23:08)
[2020-07-03] MEDS: Budesonide/Formoterol 160/4.5 1 PUFF INH IH SCH ×2 (07:47→20:23)
[2020-07-03] MEDS: Sennosides/Docusate Sodium TABLET PO SCH ×2 (08:33→21:25)
[2020-07-03] MEDS: Magic Mouthwash 10 ML UD Cup PO SCH ×3 (08:33→16:00)
[2020-07-03] MEDS: Gabapentin 400 MG CAPSULE PO SCH ×3 (08:34→21:25)
[2020-07-03] MEDS: Aspirin Enteric Coated 81 MG Tablet PO SCH (08:34)
[2020-07-03] MEDS: Insulin LISPRO 300 UNITS/3 ML VIAL SUBQ SCH ×7 (08:34→21:25)
[2020-07-03] MEDS: *HR* Rivaroxaban 15 MG TABLET PO SCH ×2 (08:34→15:59)
[2020-07-03 09:33] LABS: VBG HCO3 37 mEq/L (21-27); VBG PCO2 44 mmHg (41-51); VBG PH 7.54 pH Units (7.32-7.42); VBG PO2 187 mmHg (25-50)
[2020-07-03] MEDS ORDERED: Menthol 9.1 MG LOZENGE PO PRN (12:06)
[2020-07-03 15:46] LABS: Basophils % 0.1 %; Eosinophils # 0.3 K/mcL (0.0-0.6); Eosinophils % 2.3 %; Hemoglobin 12.3 g/dL (11.5-15.4); Lymphocytes # 1.2 K/mcL (0.6-4.6); Lymphocytes % 7.8 %; Mean Corpuscular HGB Conc 29.3 g/dL (31.6-35.5); Mean Corpuscular Hemoglobin 25.4 pg (28.0-33.3); Mean Corpuscular Volume 86.6 fL (83.0-100.0); Mean Platelet Volume 12.5 fL (9.4-12.4); Monocytes % 6.7 %; Neutrophils # 12.3 K/mcL (1.6-8.9); Platelet Count 174 K/mcL (140-400); Red Blood Count 4.85 M/mcL (3.82-4.97); Red Cell Distribution Width 18.4 % (11.5-14.5); Segmented Neutrophils % 82.1 %
[2020-07-03] MEDS: Furosemide 40 MG TABLET PO SCH (15:59)
[2020-07-03] MEDS ORDERED: Chloraseptic Spray 177 ML BOTTLE MM PRN (16:08)
[2020-07-03] MEDS: Insulin DETEMIR 100 UNIT/ML X5UNITS SUBQ SCH (21:25)
[2020-07-04] MEDS: Ipratropium/Albuterol Neb 3 ML IH SCH ×5 (04:14→19:55)
[2020-07-04 07:34] LABS: BUN/Creatinine Ratio 34 (6-26); Blood Urea Nitrogen 20 mg/dL (8-23); Calcium 8.8 mg/dL (8.6-10.3); Carbon Dioxide 38 mEq/L (23-29); Chloride 93 mEq/L (98-107); Glucose 194 mg/dL (70-105); Osmolality,Calculated 290 (280-300); Potassium 4.5 mEq/L (3.5-5.1); Sodium 136 mEq/L (136-145); eGFR For African Americans > 60 (> 60); eGFR For Non-African Americans > 60 (> 60)
[2020-07-04] MEDS: Furosemide 40 MG TABLET PO SCH ×2 (08:27→16:48)
[2020-07-04] MEDS: Aspirin Enteric Coated 81 MG Tablet PO SCH (08:27)
[2020-07-04] MEDS: Gabapentin 400 MG CAPSULE PO SCH ×3 (08:27→21:32)
[2020-07-04] MEDS: Sennosides/Docusate Sodium TABLET PO SCH ×2 (08:27→21:32)
[2020-07-04] MEDS: *HR* Rivaroxaban 15 MG TABLET PO SCH ×2 (08:27→16:48)
[2020-07-04] MEDS: Magic Mouthwash 10 ML UD Cup PO SCH ×3 (08:28→16:49)
[2020-07-04] MEDS: Insulin LISPRO 300 UNITS/3 ML VIAL SUBQ SCH ×7 (08:28→21:34)
[2020-07-04] MEDS: Budesonide/Formoterol 160/4.5 1 PUFF INH IH SCH ×2 (11:11→19:55)
[2020-07-04] MEDS: Insulin DETEMIR 100 UNIT/ML X5UNITS SUBQ SCH (21:32)
[2020-07-05] MEDS: Ipratropium/Albuterol Neb 3 ML IH SCH ×5 (00:08→15:43)
[2020-07-05 05:01] LABS: Basophils % 0.2 %; Eosinophils # 0.3 K/mcL (0.0-0.6); Eosinophils % 3.5 %; Hematocrit 39.2 % (35.3-44.9); Hemoglobin 11.4 g/dL (11.5-15.4); Immature Granulocytes % 0.9 % (0-4); Lymphocytes # 1.3 K/mcL (0.6-4.6); Lymphocytes % 15.1 %; Mean Corpuscular HGB Conc 29.1 g/dL (31.6-35.5); Mean Corpuscular Hemoglobin 25.3 pg (28.0-33.3); Mean Corpuscular Volume 87.1 fL (83.0-100.0); Mean Platelet Volume 11.1 fL (9.4-12.4); Monocytes # 0.7 K/mcL (0.0-1.3); Monocytes % 8.3 %; Neutrophils # 6.3 K/mcL (1.6-8.9); Platelet Count 144 K/mcL (140-400); White Blood Count 8.8 K/mcL (4.3-11.1)
[2020-07-05 05:31] LABS: BUN/Creatinine Ratio 34 (6-26); Blood Urea Nitrogen 21 mg/dL (8-23); Calcium 8.4 mg/dL (8.6-10.3); Carbon Dioxide 36 mEq/L (23-29); Chloride 93 mEq/L (98-107); Glucose 261 mg/dL (70-105); Osmolality,Calculated 294 (280-300); Potassium 3.6 mEq/L (3.5-5.1); Sodium 136 mEq/L (136-145); eGFR For African Americans > 60 (> 60); eGFR For Non-African Americans > 60 (> 60)
[2020-07-05 07:16] LABS: Platelet Estimate Normal (Normal)
[2020-07-05] MEDS: Budesonide/Formoterol 160/4.5 1 PUFF INH IH SCH (07:24)
[2020-07-05] MEDS: Magic Mouthwash 10 ML UD Cup PO SCH ×2 (08:21→13:23)
[2020-07-05] MEDS: *HR* Rivaroxaban 15 MG TABLET PO SCH (08:22)
[2020-07-05] MEDS: Gabapentin 400 MG CAPSULE PO SCH (08:22)
[2020-07-05] MEDS: Aspirin Enteric Coated 81 MG Tablet PO SCH (08:22)
[2020-07-05] MEDS: Sennosides/Docusate Sodium TABLET PO SCH (08:22)
[2020-07-05] MEDS: Furosemide 40 MG TABLET PO SCH (08:22)
[2020-07-05] MEDS: Insulin LISPRO 300 UNITS/3 ML VIAL SUBQ SCH ×4 (08:23→13:23)
[2020-07-05 11:39] VITALS: BP 129/75
== END 2020-07-05 13:30 | disposition hospice, home (50) | DRG 175 ==
LOC: 2ANU → SUATTDRO 06-27 16:30
PROVIDERS: ADMIT Internal Medicine; ATTEND Internal Medicine

== ENCOUNTER 2020-07-17 22:03 | Inpatient (IN) ==
[2020-07-18] MEDS ORDERED: Naloxone 0.4 MG/ML INJ IVP PRN (00:56)
[2020-07-18] MEDS ORDERED: Melatonin 3 MG TABLET PO PRN (00:56)
[2020-07-18] MEDS ORDERED: Ondansetron 4 MG/2 ML VIAL IVP PRN (00:56)
[2020-07-18] MEDS ORDERED: *HR* Dextrose 50 % in Water (Vial) 50 ML VIAL IVP PRN (01:09)
[2020-07-18] MEDS ORDERED: Dextrose Gel 15 GM/37.5 ML TUBE PO PRN ×2 (01:09)
[2020-07-18] MEDS ORDERED: D5% in Water 1,000 ML IVC PRN (01:09)
[2020-07-18] MEDS ORDERED: Dexamethasone 4 MG/ML VIAL IVP ONE (01:10)
[2020-07-18] MEDS ORDERED: D10% in Water 500 ML IVC SCH (01:15)
[2020-07-18 01:50] LABS: Basophils % 0.3 %; Hematocrit 36.8 % (35.3-44.9); Hemoglobin 10.7 g/dL (11.5-15.4); Immature Granulocytes % 2.5 % (0-4); Lymphocytes # 0.5 K/mcL (0.6-4.6); Lymphocytes % 13.3 %; Mean Corpuscular HGB Conc 29.1 g/dL (31.6-35.5); Mean Corpuscular Hemoglobin 25.5 pg (28.0-33.3); Mean Corpuscular Volume 87.8 fL (83.0-100.0); Mean Platelet Volume 10.4 fL (9.4-12.4); Monocytes # 0.2 K/mcL (0.0-1.3); Monocytes % 5.6 %; Platelet Count 283 K/mcL (140-400); Red Blood Count 4.19 M/mcL (3.82-4.97); Red Cell Distribution Width 18.8 % (11.5-14.5); Segmented Neutrophils % 78.3 %; White Blood Count 3.5 K/mcL (4.3-11.1)
[2020-07-18 01:54] LABS: Neutrophils # 2.7 K/mcL (1.6-8.9)
[2020-07-18 02:00] LABS: INR 1.6; Prothrombin Time 18.8 Seconds (9.4-12.1)
[2020-07-18 02:02] LABS: Activated Partial Thrombo Time 32.1 Seconds (26.0-36.0)
[2020-07-18 02:11] LABS: Anisocytosis 1+ (Not Present); Polychromasia 1+ (Not Present)
[2020-07-18 02:12] LABS: Alanine Aminotransferase 23 Units/L (7-52); Albumin 3.2 g/dL (3.5-5.7); Albumin/Globulin Ratio 0.9 (1.1-2.2); Alkaline Phosphatase 68 Units/L (34-104); Aspartate Amino Transferase 52 Units/L (13-39); BUN/Creatinine Ratio 28 (6-26); Bilirubin,Total 0.4 mg/dL (0.3-1.0); Blood Urea Nitrogen 18 mg/dL (8-23); Calcium 8.3 mg/dL (8.6-10.3); Carbon Dioxide 34 mEq/L (23-29); Chloride 95 mEq/L (98-107); Globulin 3.4 g/dL (2.4-3.5); Glucose 37 mg/dL (70-105); Magnesium 1.9 mg/dL (1.6-2.6); Osmolality,Calculated 282 (280-300); Platelet Estimate Normal (Normal); Potassium 3.7 mEq/L (3.5-5.1); Reactive Lymphocytes Present (Not Present); Sodium 137 mEq/L (136-145); Total Protein 6.6 g/dL (6.4-8.9); eGFR For African Americans > 60 (> 60); eGFR For Non-African Americans > 60 (> 60)
[2020-07-18] MEDS ORDERED: Furosemide 40 MG/4 ML VIAL IVP STA (02:23)
[2020-07-18 02:33] LABS: C-Reactive Protein 87 mg/L (Less than 10); Transferrin 149 mg/dL (203-362)
[2020-07-18 02:53] LABS: Ferritin 1263 ng/mL (10-120)
[2020-07-18] MEDS: Ipratropium 1 PUFF INHALER IH SCH ×5 (04:12→19:55)
[2020-07-18] MEDS ORDERED: Acetaminophen 325 MG TABLET PO PRN (04:59)
[2020-07-18] MEDS: *HR* Rivaroxaban 15 MG TABLET PO SCH ×2 (07:37→15:45)
[2020-07-18] MEDS: Piperacillin/Tazobactam 3.375 GM in 0.9 % Sodium Chloride Mini Bag 100 ML IVPB SCH ×2 (09:34→16:53)
[2020-07-18] MEDS ORDERED: Dexamethasone Sodium Phos/PF 10 MG/ML VIAL IVP ONE (11:39)
[2020-07-18] MEDS: Azithromycin 500 MG in 0.9 % Sodium Chloride 250 ML IVPB SCH (13:15)
[2020-07-18 13:40] LABS: Red Cell Distribution Width 18.6 % (11.5-14.5)
[2020-07-18 13:41] LABS: Basophils % 0.5 %; Hematocrit 37.4 % (35.3-44.9); Hemoglobin 10.9 g/dL (11.5-15.4); Immature Granulocytes % 1.9 % (0-4); Lymphocytes # 0.3 K/mcL (0.6-4.6); Lymphocytes % 9.3 %; Mean Corpuscular HGB Conc 29.1 g/dL (31.6-35.5); Mean Corpuscular Hemoglobin 25.3 pg (28.0-33.3); Mean Platelet Volume 10.7 fL (9.4-12.4); Monocytes # 0.3 K/mcL (0.0-1.3); Monocytes % 6.8 %; Nucleated Red Blood Cells 0.5 /100 WBC (0); Platelet Count 296 K/mcL (140-400); Segmented Neutrophils % 81.5 %; White Blood Count 3.7 K/mcL (4.3-11.1)
[2020-07-18 13:59] LABS: Alanine Aminotransferase 23 Units/L (7-52); Albumin 3.2 g/dL (3.5-5.7); Alkaline Phosphatase 69 Units/L (34-104); Aspartate Amino Transferase 50 Units/L (13-39); BUN/Creatinine Ratio 30 (6-26); Bilirubin,Total 0.6 mg/dL (0.3-1.0); Blood Urea Nitrogen 20 mg/dL (8-23); Calcium 8.4 mg/dL (8.6-10.3); Carbon Dioxide 29 mEq/L (23-29); Chloride 93 mEq/L (98-107); Globulin 3.3 g/dL (2.4-3.5); Glucose 270 mg/dL (70-105); Osmolality,Calculated 294 (280-300); Potassium 4.3 mEq/L (3.5-5.1); Sodium 136 mEq/L (136-145); Total Protein 6.5 g/dL (6.4-8.9); eGFR For African Americans > 60 (> 60); eGFR For Non-African Americans > 60 (> 60)
[2020-07-18 14:09] LABS: Platelet Estimate Normal (Normal)
[2020-07-18] MEDS ORDERED: Sennosides 8.6 MG TABLET PO PRN (14:31)
[2020-07-18] MEDS ORDERED: Bisacodyl 10 MG RECTAL SUPPOSITORY RC PRN (14:31)
[2020-07-18] MEDS ORDERED: Remdesivir 200 MG in 0.9 % Sodium Chloride 100 ML IVPB ONE (15:00)
[2020-07-18] MEDS: Gabapentin 400 MG CAPSULE PO SCH ×2 (15:44→21:04)
[2020-07-18] MEDS: Budesonide/Formoterol 160/4.5 1 PUFF INH IH SCH (19:55)
[2020-07-18] MEDS ORDERED: Furosemide 40 MG TABLET PO SCH (21:00)
[2020-07-18] MEDS: Famotidine 20 MG TABLET PO SCH (21:04)
[2020-07-18] MEDS: tiZANidine 4 MG TABLET PO PRN (21:08)
[2020-07-18] MEDS: Ketorolac 15 MG/ML VIAL IVP PRN (21:38)
[2020-07-18 22:59] LABS: ABG Base Excess 10 mEq/L (-2 to 3); ABG HCO3 37 mEq/L (21-27); ABG Oxygen Saturation 90 % (95-98); ABG PCO2 60 mmHg (35-45); ABG PO2 62 mmHg (85-104); ABG TCO2 39 mEq/L (20-26)
[2020-07-19] MEDS: Ipratropium 1 PUFF INHALER IH SCH ×7 (00:23→23:57)
[2020-07-19] MEDS: Furosemide 40 MG/4 ML VIAL IVP SCH ×3 (00:49→15:39)
[2020-07-19] MEDS: Piperacillin/Tazobactam 3.375 GM in 0.9 % Sodium Chloride Mini Bag 100 ML IVPB SCH ×4 (00:49→15:14)
[2020-07-19 02:06] LABS: Bilirubin,Urine Negative (Negative); Blood,Urine Negative (Negative); Clarity,Urine Clear (Clear); Color,Urine Colorless (Yellow); Glucose,Urine (UA) 500 mg/dL (Normal); Ketones,Urine Negative (Negative); Leukocyte Esterase,Urine Negative (Negative); Mucus,Urine Few per lpf (None-Few); Nitrite,Urine Negative (Negative); Protein,Urine Negative (Neg-Trace); RBC,Urine 0-3 per hpf (0-3); Specific Gravity,Urine 1.008 (1.010-1.025); Squamous Epithelial Cell,Urine Few per hpf (None-Few); Urobilinogen,Urine Normal (Normal); WBC,Urine 0-3 per hpf (0-3)
[2020-07-19] MEDS: Ketorolac 15 MG/ML VIAL IVP PRN (05:44)
[2020-07-19 06:29] LABS: Basophils % 0.7 %; Eosinophils % 0.2 %; Hematocrit 39.5 % (35.3-44.9); Hemoglobin 11.4 g/dL (11.5-15.4); Lymphocytes # 0.7 K/mcL (0.6-4.6); Lymphocytes % 10.6 %; Mean Corpuscular HGB Conc 28.9 g/dL (31.6-35.5); Mean Corpuscular Hemoglobin 25.5 pg (28.0-33.3); Mean Corpuscular Volume 88.4 fL (83.0-100.0); Mean Platelet Volume 10.4 fL (9.4-12.4); Monocytes # 0.3 K/mcL (0.0-1.3); Monocytes % 5.2 %; Platelet Count 362 K/mcL (140-400); Red Blood Count 4.47 M/mcL (3.82-4.97); Segmented Neutrophils % 81.3 %; White Blood Count 6.2 K/mcL (4.3-11.1)
[2020-07-19 06:43] LABS: INR 2.6; Prothrombin Time 29.2 Seconds (9.4-12.1)
[2020-07-19 06:55] LABS: Anisocytosis 1+ (Not Present); Platelet Estimate Normal (Normal)
[2020-07-19 07:06] LABS: Alanine Aminotransferase 21 Units/L (7-52); Albumin 3.1 g/dL (3.5-5.7); Albumin/Globulin Ratio 0.9 (1.1-2.2); Alkaline Phosphatase 68 Units/L (34-104); Aspartate Amino Transferase 44 Units/L (13-39); BUN/Creatinine Ratio 28 (6-26); Bilirubin,Total 0.6 mg/dL (0.3-1.0); Blood Urea Nitrogen 20 mg/dL (8-23); Calcium 8.4 mg/dL (8.6-10.3); Carbon Dioxide 35 mEq/L (23-29); Chloride 93 mEq/L (98-107); Ferritin > 1500 ng/mL (10-120); Globulin 3.4 g/dL (2.4-3.5); Glucose 149 mg/dL (70-105); Osmolality,Calculated 295 (280-300); Potassium 4.1 mEq/L (3.5-5.1); Sodium 140 mEq/L (136-145); Total Protein 6.5 g/dL (6.4-8.9); Transferrin 135 mg/dL (203-362); eGFR For African Americans > 60 (> 60); eGFR For Non-African Americans > 60 (> 60)
[2020-07-19] MEDS ORDERED: *HR* Heparin 5,000 UNIT/ML VIAL IVP PRN ×2 (07:43)
[2020-07-19] MEDS ORDERED: Heparin 25,000UNIT/250ML 1/2NS 25,000 UNIT/250 ML IV.SOLN IVC SCH (07:45)
[2020-07-19] MEDS: Famotidine 20 MG TABLET PO SCH ×2 (07:55→20:18)
[2020-07-19] MEDS: Dexamethasone Sodium Phos/PF 10 MG/ML VIAL IVP SCH (07:55)
[2020-07-19] MEDS: Aspirin 81 MG TAB.CHEW PO SCH (07:55)
[2020-07-19] MEDS: Gabapentin 400 MG CAPSULE PO SCH ×3 (07:55→20:18)
[2020-07-19] MEDS: Budesonide/Formoterol 160/4.5 1 PUFF INH IH SCH ×2 (07:58→20:06)
[2020-07-19 08:26] LABS: C-Reactive Protein 118 mg/L (Less than 10)
[2020-07-19] MEDS ORDERED: Dexamethasone 4 MG/ML VIAL IVP SCH (09:00)
[2020-07-19] MEDS ORDERED: cefTRIAXone 1,000 MG in Water for inj. (sterile) 10 ML IVP SCH (09:00)
[2020-07-19 09:07] LABS: Hematocrit 38.4 % (35.3-44.9)
[2020-07-19 09:08] LABS: Hemoglobin 10.9 g/dL (11.5-15.4); Mean Corpuscular HGB Conc 28.4 g/dL (31.6-35.5); Mean Corpuscular Hemoglobin 24.8 pg (28.0-33.3); Mean Corpuscular Volume 87.5 fL (83.0-100.0); Platelet Count 376 K/mcL (140-400); Red Blood Count 4.39 M/mcL (3.82-4.97); Red Cell Distribution Width 18.8 % (11.5-14.5); White Blood Count 6.9 K/mcL (4.3-11.1)
[2020-07-19 09:15] LABS: INR 2.4; Prothrombin Time 26.8 Seconds (9.4-12.1)
[2020-07-19 09:40] LABS: Heparin anti-factor XA UFH > 2.00 IU/mL (0.30-0.70)
[2020-07-19] MEDS: Heparin 25,000UNIT/250ML 1/2NS 25,000 UNIT/250 ML IV.SOLN IVC SCH (09:40)
[2020-07-19] MEDS: Azithromycin 500 MG in 0.9 % Sodium Chloride 250 ML IVPB SCH (13:08)
[2020-07-19] MEDS: Insulin LISPRO 300 UNITS/3 ML VIAL SUBQ SCH ×3 (13:09→21:36)
[2020-07-19] MEDS: Remdesivir 100 MG in 0.9 % Sodium Chloride 100 ML IVPB SCH (13:44)
[2020-07-19] MEDS: tiZANidine 4 MG TABLET PO PRN (21:15)
[2020-07-20] MEDS: Heparin 25,000UNIT/250ML 1/2NS 25,000 UNIT/250 ML IV.SOLN IVC SCH ×2 (01:00→18:04)
[2020-07-20] MEDS: Piperacillin/Tazobactam 3.375 GM in 0.9 % Sodium Chloride Mini Bag 100 ML IVPB SCH ×4 (01:29→23:19)
[2020-07-20] MEDS: Ipratropium 1 PUFF INHALER IH SCH ×6 (03:35→23:39)
[2020-07-20 04:29] LABS: VBG Ionized Calcium 0.96 mmol/L (1.15-1.35)
[2020-07-20 04:44] LABS: Basophils % 0.7 %; Nucleated Red Blood Cells 0.3 /100 WBC (0); Prothrombin Time 22.7 Seconds (9.4-12.1)
[2020-07-20 04:46] LABS: Hematocrit 37.1 % (35.3-44.9); Hemoglobin 10.3 g/dL (11.5-15.4); Immature Granulocytes % 3.3 % (0-4); Lymphocytes # 0.6 K/mcL (0.6-4.6); Lymphocytes % 10.6 %; Mean Corpuscular HGB Conc 27.8 g/dL (31.6-35.5); Mean Corpuscular Hemoglobin 24.5 pg (28.0-33.3); Mean Corpuscular Volume 88.3 fL (83.0-100.0); Mean Platelet Volume 10.2 fL (9.4-12.4); Monocytes # 0.4 K/mcL (0.0-1.3); Monocytes % 6.4 %; Platelet Count 401 K/mcL (140-400); Red Cell Distribution Width 18.4 % (11.5-14.5); White Blood Count 5.8 K/mcL (4.3-11.1)
[2020-07-20 04:52] LABS: Neutrophils # 4.6 K/mcL (1.6-8.9)
[2020-07-20 05:07] LABS: Alanine Aminotransferase 23 Units/L (7-52); Albumin/Globulin Ratio 0.9 (1.1-2.2); Alkaline Phosphatase 69 Units/L (34-104); Aspartate Amino Transferase 39 Units/L (13-39); BUN/Creatinine Ratio 44 (6-26); Bilirubin,Direct 0.2 mg/dL (0.0-0.2); Bilirubin,Indirect 0.3 mg/dL (0.0-1.0); Bilirubin,Total 0.5 mg/dL (0.3-1.0); Blood Urea Nitrogen 31 mg/dL (8-23); Calcium 8.4 mg/dL (8.6-10.3); Carbon Dioxide 34 mEq/L (23-29); Chloride 94 mEq/L (98-107); Globulin 3.5 g/dL (2.4-3.5); Glucose 234 mg/dL (70-105); Magnesium 2.1 mg/dL (1.6-2.6); Osmolality,Calculated 304 (280-300); Phosphorous 4.2 mg/dL (2.7-4.5); Sodium 140 mEq/L (136-145); Total Protein 6.5 g/dL (6.4-8.9); eGFR For African Americans > 60 (> 60); eGFR For Non-African Americans > 60 (> 60)
[2020-07-20 05:09] LABS: Hypochromasia Present (Not Present)
[2020-07-20 05:10] LABS: Anisocytosis 1+ (Not Present); Platelet Estimate Normal (Normal)
[2020-07-20 05:21] LABS: Ferritin > 1500 ng/mL (10-120)
[2020-07-20] MEDS: Calcium Gluconate 1gm/50mL 1 GM/50 ML BAG IVPB PRN ×2 (06:39→08:06)
[2020-07-20] MEDS: Furosemide 40 MG/4 ML VIAL IVP SCH ×2 (07:32→16:02)
[2020-07-20] MEDS: Gabapentin 400 MG CAPSULE PO SCH ×3 (07:33→19:33)
[2020-07-20] MEDS: Cholecalciferol (D-3) 1,000 UNIT (25MCG) TABLET PO SCH (07:33)
[2020-07-20] MEDS: Dexamethasone Sodium Phos/PF 10 MG/ML VIAL IVP SCH (07:33)
[2020-07-20] MEDS: Famotidine 20 MG TABLET PO SCH ×2 (07:33→19:33)
[2020-07-20] MEDS: Aspirin 81 MG TAB.CHEW PO SCH (07:33)
[2020-07-20] MEDS: Insulin LISPRO 300 UNITS/3 ML VIAL SUBQ SCH ×4 (08:05→20:19)
[2020-07-20] MEDS: Budesonide/Formoterol 160/4.5 1 PUFF INH IH SCH ×2 (08:10→19:54)
[2020-07-20] MEDS ORDERED: Sennosides/Docusate Sodium TABLET PO PRN (11:02)
[2020-07-20] MEDS: Remdesivir 100 MG in 0.9 % Sodium Chloride 100 ML IVPB SCH (13:02)
[2020-07-20] MEDS: Azithromycin 500 MG in 0.9 % Sodium Chloride 250 ML IVPB SCH (13:02)
[2020-07-20] MEDS: Sennosides/Docusate Sodium TABLET PO SCH ×2 (13:04→19:33)
[2020-07-20] MEDS: Ascorbic Acid 500 MG TABLET PO SCH (16:03)
[2020-07-20] MEDS: Zinc Sulfate 220 MG CAPSULE PO SCH (19:35)
[2020-07-21] MEDS: Ipratropium 1 PUFF INHALER IH SCH ×5 (03:52→20:25)
[2020-07-21 05:02] LABS: Mean Platelet Volume 10.3 fL (9.4-12.4); Nucleated Red Blood Cells 0.4 /100 WBC (0)
[2020-07-21 05:03] LABS: Basophils # 0.1 K/mcL (0.0-0.2); Basophils % 0.7 %; Hematocrit 37.3 % (35.3-44.9); Immature Granulocytes % 5.3 % (0-4); Lymphocytes # 0.9 K/mcL (0.6-4.6); Lymphocytes % 10.1 %; Mean Corpuscular HGB Conc 29.5 g/dL (31.6-35.5); Mean Corpuscular Hemoglobin 25.9 pg (28.0-33.3); Mean Corpuscular Volume 87.8 fL (83.0-100.0); Monocytes # 0.6 K/mcL (0.0-1.3); Monocytes % 7.5 %; Platelet Count 499 K/mcL (140-400); Red Blood Count 4.25 M/mcL (3.82-4.97); Red Cell Distribution Width 18.2 % (11.5-14.5); Segmented Neutrophils % 76.4 %; White Blood Count 8.4 K/mcL (4.3-11.1)
[2020-07-21 05:05] LABS: VBG Ionized Calcium 1.06 mmol/L (1.15-1.35)
[2020-07-21 05:08] LABS: INR 1.3; Prothrombin Time 15.1 Seconds (9.4-12.1)
[2020-07-21 05:09] LABS: Neutrophils # 6.4 K/mcL (1.6-8.9)
[2020-07-21 05:21] LABS: Alanine Aminotransferase 18 Units/L (7-52); Albumin 2.9 g/dL (3.5-5.7); Albumin/Globulin Ratio 0.8 (1.1-2.2); Alkaline Phosphatase 76 Units/L (34-104); Aspartate Amino Transferase 22 Units/L (13-39); BUN/Creatinine Ratio 51 (6-26); Bilirubin,Direct 0.2 mg/dL (0.0-0.2); Bilirubin,Indirect 0.4 mg/dL (0.0-1.0); Bilirubin,Total 0.6 mg/dL (0.3-1.0); Blood Urea Nitrogen 38 mg/dL (8-23); Calcium 8.9 mg/dL (8.6-10.3); Carbon Dioxide 39 mEq/L (23-29); Chloride 94 mEq/L (98-107); Globulin 3.6 g/dL (2.4-3.5); Glucose 297 mg/dL (70-105); Magnesium 2.1 mg/dL (1.6-2.6); Osmolality,Calculated 316 (280-300); Potassium 3.5 mEq/L (3.5-5.1); Sodium 143 mEq/L (136-145); Total Protein 6.5 g/dL (6.4-8.9); eGFR For African Americans > 60 (> 60); eGFR For Non-African Americans > 60 (> 60)
[2020-07-21 06:01] LABS: Anisocytosis 1+ (Not Present); Hypochromasia Present (Not Present); Poikilocytosis 1+ (Not Present)
[2020-07-21] MEDS: Furosemide 40 MG/4 ML VIAL IVP SCH (07:28)
[2020-07-21] MEDS: Dexamethasone Sodium Phos/PF 10 MG/ML VIAL IVP SCH (07:28)
[2020-07-21] MEDS: Gabapentin 400 MG CAPSULE PO SCH ×3 (07:28→19:27)
[2020-07-21] MEDS: Cholecalciferol (D-3) 1,000 UNIT (25MCG) TABLET PO SCH (07:28)
[2020-07-21] MEDS: *HR* LORazepam 0.5 MG TABLET PO PRN ×2 (07:29→19:27)
[2020-07-21] MEDS: Sennosides/Docusate Sodium TABLET PO SCH ×2 (07:29→19:52)
[2020-07-21] MEDS: Piperacillin/Tazobactam 3.375 GM in 0.9 % Sodium Chloride Mini Bag 100 ML IVPB SCH ×3 (07:29→23:22)
[2020-07-21] MEDS: Zinc Sulfate 220 MG CAPSULE PO SCH (07:29)
[2020-07-21] MEDS: Aspirin 81 MG TAB.CHEW PO SCH (07:29)
[2020-07-21] MEDS: Famotidine 20 MG TABLET PO SCH ×2 (07:29→19:27)
[2020-07-21] MEDS: Ascorbic Acid 500 MG TABLET PO SCH ×2 (07:29→17:04)
[2020-07-21] MEDS: Budesonide/Formoterol 160/4.5 1 PUFF INH IH SCH ×2 (07:40→20:26)
[2020-07-21] MEDS: Insulin LISPRO 300 UNITS/3 ML VIAL SUBQ SCH ×3 (08:16→17:41)
[2020-07-21] MEDS: Heparin 25,000UNIT/250ML 1/2NS 25,000 UNIT/250 ML IV.SOLN IVC SCH ×3 (08:16→23:20)
[2020-07-21] MEDS ORDERED: Insulin DETEMIR 100 UNIT/ML X5UNITS SUBQ ONE (10:30)
[2020-07-21] MEDS: Remdesivir 100 MG in 0.9 % Sodium Chloride 100 ML IVPB SCH (13:05)
[2020-07-21] MEDS: Azithromycin 500 MG in 0.9 % Sodium Chloride 250 ML IVPB SCH (13:05)
[2020-07-21] MEDS ORDERED: Furosemide 20 MG/2 ML VIAL IVP SCH (17:00)
[2020-07-21] MEDS: tiZANidine 4 MG TABLET PO PRN (19:27)
[2020-07-21] MEDS ORDERED: Insulin LISPRO 300 UNITS/3 ML VIAL SUBQ SCH (21:00)
[2020-07-21] MEDS ORDERED: Insulin DETEMIR 100 UNIT/ML X5UNITS SUBQ SCH (21:00)
[2020-07-21] MEDS: Dexmedetomidine HCl 400 MCG/100 ML MLS IVC SCH (21:53)
[2020-07-22] MEDS: Ipratropium 1 PUFF INHALER IH SCH ×7 (00:04→23:15)
[2020-07-22] MEDS ORDERED: *HR* LORazepam 2 MG/ML VIAL ONE ×2 (00:28→09:23)
[2020-07-22] MEDS ORDERED: *HR* LORazepam 2 MG/ML VIAL IVP ONE (00:35)
[2020-07-22] MEDS: Dexmedetomidine HCl 400 MCG/100 ML MLS IVC SCH ×3 (01:53→08:49)
[2020-07-22] MEDS: Heparin 25,000UNIT/250ML 1/2NS 25,000 UNIT/250 ML IV.SOLN IVC SCH ×2 (05:28→06:11)
[2020-07-22 05:41] LABS: VBG Ionized Calcium 1.05 mmol/L (1.15-1.35)
[2020-07-22 05:42] LABS: Nucleated Red Blood Cells 0.6 /100 WBC (0); Red Blood Count 4.36 M/mcL (3.82-4.97)
[2020-07-22 05:43] LABS: Mean Corpuscular HGB Conc 28.2 g/dL (31.6-35.5); Mean Corpuscular Hemoglobin 25.2 pg (28.0-33.3); Mean Corpuscular Volume 89.4 fL (83.0-100.0); Mean Platelet Volume 12.2 fL (9.4-12.4); Platelet Count 323 K/mcL (140-400); Red Cell Distribution Width 18.3 % (11.5-14.5)
[2020-07-22 05:53] LABS: INR 1.2
[2020-07-22 06:03] LABS: Alanine Aminotransferase 15 Units/L (7-52); Albumin 2.9 g/dL (3.5-5.7); Albumin/Globulin Ratio 0.9 (1.1-2.2); Alkaline Phosphatase 71 Units/L (34-104); Aspartate Amino Transferase 18 Units/L (13-39); BUN/Creatinine Ratio 54 (6-26); Bilirubin,Direct 0.2 mg/dL (0.0-0.2); Bilirubin,Indirect 0.4 mg/dL (0.0-1.0); Bilirubin,Total 0.6 mg/dL (0.3-1.0); Blood Urea Nitrogen 45 mg/dL (8-23); Calcium 8.8 mg/dL (8.6-10.3); Carbon Dioxide 38 mEq/L (23-29); Chloride 96 mEq/L (98-107); Globulin 3.4 g/dL (2.4-3.5); Glucose 342 mg/dL (70-105); Magnesium 2.2 mg/dL (1.6-2.6); Osmolality,Calculated 319 (280-300); Phosphorous 3.8 mg/dL (2.7-4.5); Potassium 3.6 mEq/L (3.5-5.1); Sodium 142 mEq/L (136-145); Total Protein 6.3 g/dL (6.4-8.9); eGFR For African Americans > 60 (> 60); eGFR For Non-African Americans > 60 (> 60)
[2020-07-22 06:12] LABS: Anisocytosis 1+ (Not Present); Large Platelets Present (Not Present); Lymphocytes # 0.7 K/mcL (0.6-4.6); Monocytes # 0.5 K/mcL (0.0-1.3); Neutrophils # 7.4 K/mcL (1.6-8.9); Platelet Estimate Normal (Normal)
[2020-07-22] MEDS: Budesonide/Formoterol 160/4.5 1 PUFF INH IH SCH ×2 (07:33→19:37)
[2020-07-22] MEDS: Dexamethasone Sodium Phos/PF 10 MG/ML VIAL IVP SCH (07:35)
[2020-07-22] MEDS: Piperacillin/Tazobactam 3.375 GM in 0.9 % Sodium Chloride Mini Bag 100 ML IVPB SCH ×3 (07:35→23:31)
[2020-07-22] MEDS: Insulin LISPRO 300 UNITS/3 ML VIAL SUBQ SCH ×4 (07:36→21:36)
[2020-07-22] MEDS: Cholecalciferol (D-3) 1,000 UNIT (25MCG) TABLET PO SCH (08:49)
[2020-07-22] MEDS: Sennosides/Docusate Sodium TABLET PO SCH ×2 (08:50→20:41)
[2020-07-22] MEDS: Ascorbic Acid 500 MG TABLET PO SCH ×2 (08:50→16:02)
[2020-07-22] MEDS: Famotidine 20 MG TABLET PO SCH (08:50)
[2020-07-22] MEDS: Gabapentin 400 MG CAPSULE PO SCH ×3 (08:50→20:41)
[2020-07-22] MEDS: Aspirin 81 MG TAB.CHEW PO SCH (08:50)
[2020-07-22] MEDS: Zinc Sulfate 220 MG CAPSULE PO SCH (08:50)
[2020-07-22] MEDS ORDERED: Furosemide 20 MG/2 ML VIAL IVP SCH (09:00)
[2020-07-22] MEDS ORDERED: *HR* Rivaroxaban 10 MG TABLET PO SCH (09:00)
[2020-07-22] MEDS ORDERED: *HR* LORazepam 2 MG/ML VIAL IVP STA (09:24)
[2020-07-22] MEDS ORDERED: 0.9 % Sodium Chloride 1,000 ML ONE (09:45)
[2020-07-22] MEDS ORDERED: Cisatracurium 200 MG in 0.9 % Sodium Chloride 180 ML IVC SCH (10:00)
[2020-07-22] MEDS ORDERED: Artificial Tears SOLN 15 ML BOTTLE BOTH EYES PRN (10:02)
[2020-07-22] MEDS: Insulin DETEMIR 100 UNIT/ML X5UNITS SUBQ SCH ×2 (11:07→20:42)
[2020-07-22] MEDS: FentaNYL (PF) 1,000 MCG/100 ML IV.SOLN IVC SCH (12:00)
[2020-07-22] MEDS: Midazolam HCl 50 MG/100 ML IV.SOLN IVC SCH ×2 (12:00→22:26)
[2020-07-22] MEDS: Norepinephrine 4 MG/254 ML IV.SOLN IVC SCH (13:00)
[2020-07-22 14:08] LABS: ABG Base Excess 11 mEq/L (-2 to 3); ABG HCO3 38 mEq/L (21-27); ABG Oxygen Saturation 96 % (95-98); ABG PCO2 60 mmHg (35-45); ABG PH 7.41 pH Units (7.32-7.45); ABG PO2 82 mmHg (85-104); ABG TCO2 40 mEq/L (20-26); Blood Gas VT 380 cc
[2020-07-22] MEDS: Azithromycin 500 MG in 0.9 % Sodium Chloride 250 ML IVPB SCH (14:15)
[2020-07-22] MEDS: Artificial Tears SOLN 15 ML BOTTLE BOTH EYES SCH ×3 (14:15→21:35)
[2020-07-22] MEDS: Remdesivir 100 MG in 0.9 % Sodium Chloride 100 ML IVPB SCH (14:16)
[2020-07-22 15:32] LABS: VBG Ionized Calcium 1.12 mmol/L (1.15-1.35)
[2020-07-22 15:51] LABS: BUN/Creatinine Ratio 48 (6-26); Blood Urea Nitrogen 47 mg/dL (8-23); Calcium 8.8 mg/dL (8.6-10.3); Carbon Dioxide 41 mEq/L (23-29); Chloride 98 mEq/L (98-107); Glucose 114 mg/dL (70-105); Magnesium 2.3 mg/dL (1.6-2.6); Osmolality,Calculated 317 (280-300); Phosphorous 4.2 mg/dL (2.7-4.5); Potassium 3.4 mEq/L (3.5-5.1); Sodium 147 mEq/L (136-145); eGFR For African Americans > 60 (> 60); eGFR For Non-African Americans 58 (> 60)
[2020-07-22] MEDS ORDERED: *HR* Succinylcholine 200 MG/10 ML VIAL IVP ONE (17:05)
[2020-07-22] MEDS ORDERED: *HR* Midazolam HCl 2 MG/2 ML VIAL IVP ONE (17:05)
[2020-07-22] MEDS ORDERED: *HR* Propofol 200 MG/20 ML VIAL IVP ONE (17:05)
[2020-07-22] MEDS ORDERED: *HR* Midazolam HCl 5 MG/5 ML VIAL IVP ONE (17:05)
[2020-07-22] MEDS: Famotidine 20 MG/2 ML VIAL IVP SCH (17:20)
[2020-07-22] MEDS ORDERED: Calcium Gluconate 1gm/50mL 1 GM/50 ML BAG IVPB PRN (17:31)
[2020-07-22] MEDS: Chlorhexidine Rinse 15 ML MOUTHWASH MM SCH (20:42)
[2020-07-23] MEDS: Insulin LISPRO 300 UNITS/3 ML VIAL SUBQ SCH ×5 (00:36→16:42)
[2020-07-23] MEDS: Heparin 25,000UNIT/250ML 1/2NS 25,000 UNIT/250 ML IV.SOLN IVC SCH (02:07)
[2020-07-23] MEDS: Ipratropium 1 PUFF INHALER IH SCH ×5 (03:24→20:33)
[2020-07-23] MEDS: FentaNYL (PF) 1,000 MCG/100 ML IV.SOLN IVC SCH ×2 (04:29→14:34)
[2020-07-23 04:52] LABS: Alanine Aminotransferase 16 Units/L (7-52); Albumin 2.8 g/dL (3.5-5.7); Albumin/Globulin Ratio 0.8 (1.1-2.2); Alkaline Phosphatase 71 Units/L (34-104); Aspartate Amino Transferase 17 Units/L (13-39); BUN/Creatinine Ratio 49 (6-26); Bilirubin,Direct 0.3 mg/dL (0.0-0.2); Bilirubin,Indirect 0.3 mg/dL (0.0-1.0); Bilirubin,Total 0.6 mg/dL (0.3-1.0); Blood Urea Nitrogen 43 mg/dL (8-23); Calcium 8.8 mg/dL (8.6-10.3); Carbon Dioxide 40 mEq/L (23-29); Chloride 98 mEq/L (98-107); Globulin 3.3 g/dL (2.4-3.5); Glucose 173 mg/dL (70-105); Magnesium 2.3 mg/dL (1.6-2.6); Osmolality,Calculated 317 (280-300); Phosphorous 4.7 mg/dL (2.7-4.5); Potassium 3.4 mEq/L (3.5-5.1); Sodium 146 mEq/L (136-145); Total Protein 6.1 g/dL (6.4-8.9); eGFR For African Americans > 60 (> 60); eGFR For Non-African Americans > 60 (> 60)
[2020-07-23 05:20] LABS: ABG Base Excess 16 mEq/L (-2 to 3); ABG HCO3 45 mEq/L (21-27); ABG Oxygen Saturation 95 % (95-98); ABG PCO2 79 mmHg (35-45); ABG PH 7.37 pH Units (7.32-7.45); ABG PO2 81 mmHg (85-104); ABG TCO2 48 mEq/L (20-26); Blood Gas Modality AF; Blood Gas VT 380 cc
[2020-07-23] MEDS: Famotidine 20 MG/2 ML VIAL IVP SCH ×2 (05:32→17:00)
[2020-07-23 05:54] LABS: VBG Ionized Calcium 1.09 mmol/L (1.15-1.35)
[2020-07-23 06:00] LABS: Mean Corpuscular Hemoglobin 25.1 pg (28.0-33.3)
[2020-07-23] MEDS ORDERED: D5% in Water 1,000 ML IVC SCH (06:00)
[2020-07-23 06:02] LABS: Hematocrit 40.4 % (35.3-44.9); Hemoglobin 11.1 g/dL (11.5-15.4); Mean Corpuscular HGB Conc 27.5 g/dL (31.6-35.5); Mean Corpuscular Volume 91.4 fL (83.0-100.0); Mean Platelet Volume 10.5 fL (9.4-12.4); Nucleated Red Blood Cells 0.6 /100 WBC (0); Platelet Count 750 K/mcL (140-400); Red Blood Count 4.42 M/mcL (3.82-4.97); Red Cell Distribution Width 18.5 % (11.5-14.5); White Blood Count 24.6 K/mcL (4.3-11.1)
[2020-07-23 07:01] LABS: Anisocytosis 1+ (Not Present); Lymphocytes # 3.4 K/mcL (0.6-4.6); Neutrophils # 16.7 K/mcL (1.6-8.9); Platelet Estimate Marked Increase (Normal); Reactive Lymphocytes Present (Not Present); Toxic Granulation Present (Not Present)
[2020-07-23] MEDS: Budesonide/Formoterol 160/4.5 1 PUFF INH IH SCH ×2 (07:33→20:35)
[2020-07-23] MEDS: Norepinephrine 4 MG/254 ML IV.SOLN IVC SCH ×2 (07:34→09:53)
[2020-07-23] MEDS: Chlorhexidine Rinse 15 ML MOUTHWASH MM SCH (08:08)
[2020-07-23] MEDS: Aspirin 81 MG TAB.CHEW PO SCH (08:09)
[2020-07-23] MEDS: Cholecalciferol (D-3) 1,000 UNIT (25MCG) TABLET PO SCH (08:09)
[2020-07-23] MEDS: Artificial Tears SOLN 15 ML BOTTLE BOTH EYES SCH ×3 (08:09→16:52)
[2020-07-23] MEDS: Gabapentin 400 MG CAPSULE PO SCH ×2 (08:09→15:26)
[2020-07-23] MEDS: Zinc Sulfate 220 MG CAPSULE PO SCH (08:09)
[2020-07-23] MEDS: Ascorbic Acid 500 MG TABLET PO SCH (08:09)
[2020-07-23] MEDS: Sennosides/Docusate Sodium TABLET PO SCH (08:09)
[2020-07-23] MEDS: Dexamethasone Sodium Phos/PF 10 MG/ML VIAL IVP SCH (08:10)
[2020-07-23] MEDS ORDERED: Vasopressin 40 UNIT in D5% in Water 100 ML IVC SCH (09:00)
[2020-07-23] MEDS ORDERED: Ringers Solution, Lactated 1,000 ML ONE (09:22)
[2020-07-23] MEDS ORDERED: Albumin Human 5% 12.5 GM/250 ML IV.SOLN ONE (09:22)
[2020-07-23] MEDS ORDERED: 0.9 % Sodium Chloride 1,000 ML ONE ×5 (09:23→11:36)
[2020-07-23] MEDS ORDERED: Calcium Gluconate 1,000 MG/10 ML VIAL ONE (09:26)
[2020-07-23] MEDS: Phenylephrine 50 MG in 0.9 % Sodium Chloride 250 ML IVC SCH ×2 (09:30→14:37)
[2020-07-23 09:45] LABS: ABG Base Excess 7 mEq/L (-2 to 3); ABG Chloride 98 mEq/L (98-107); ABG Glucose 474 mg/dL (60-95); ABG HCO3 35 mEq/L (21-27); ABG Ionized Calcium 1.27 mmol/L (1.15-1.35); ABG Oxygen Saturation 98 % (95-98); ABG PCO2 76 mmHg (35-45); ABG PH 7.26 pH Units (7.32-7.45); ABG PO2 120 mmHg (85-104); ABG TCO2 37 mEq/L (20-26); Blood Gas Modality ASSIST CONTROL; Blood Gas VT 380 cc
[2020-07-23] MEDS: Dexmedetomidine HCl 400 MCG/100 ML MLS IVC SCH ×4 (09:45→17:27)
[2020-07-23] MEDS: Albumin Human 5% 12.5 GM/250 ML IV.SOLN IVC SCH ×2 (09:51→09:59)
[2020-07-23] MEDS: Insulin DETEMIR 100 UNIT/ML X5UNITS SUBQ SCH (09:52)
[2020-07-23] MEDS ORDERED: Hydrocortisone Sodium Succ 100 MG/2 ML VIAL ONE (09:54)
[2020-07-23] MEDS: Piperacillin/Tazobactam 3.375 GM in 0.9 % Sodium Chloride Mini Bag 100 ML IVPB SCH ×2 (09:54→16:49)
[2020-07-23] MEDS ORDERED: Albumin 25% 25gram/100mL 25 GM/100 ML IV.SOLN ONE ×2 (10:03→10:32)
[2020-07-23 10:04] LABS: Budding Yeast,Urine Many per hpf (None Seen); Squamous Epithelial Cell,Urine Present per hpf (None-Few); WBC,Urine Present per hpf (0-3)
[2020-07-23 10:05] LABS: Bilirubin,Urine Negative (Negative); Blood,Urine Moderate (Negative); Clarity,Urine Turbid (Clear); Color,Urine Yellow (Yellow); Glucose,Urine (UA) 300 mg/dL (Normal); Ketones,Urine Trace mg/dL (Negative); Leukocyte Esterase,Urine Large (Negative); Nitrite,Urine Negative (Negative); PH,Urine 6.5 pH Units (5.0-8.0); Protein,Urine 30 mg/dL (Neg-Trace); Specific Gravity,Urine > 1.030 (1.010-1.025); Urobilinogen,Urine Normal (Normal)
[2020-07-23] MEDS ORDERED: Hydrocortisone Sodium Succ 100 MG/2 ML VIAL IVP ONE (10:13)
[2020-07-23] MEDS ORDERED: EPINEPHrine 5 MG in D5% in Water 250 ML IVC SCH (10:15)
[2020-07-23] MEDS ORDERED: Thiamine (B-1) 200 MG in 0.9 % Sodium Chloride 50 ML IVPB SCH (10:30)
[2020-07-23] MEDS ORDERED: Sodium Bicarbonate 150 MEQ in D5% in Water 1,000 ML IVC ONE (10:30)
[2020-07-23] MEDS ORDERED: Famotidine 20 MG/2 ML VIAL IVP ONE (10:36)
[2020-07-23 10:52] LABS: ABG Base Excess 0 mEq/L (-2 to 3); ABG Chloride 104 mEq/L (98-107); ABG Glucose 451 mg/dL (60-95); ABG HCO3 27 mEq/L (21-27); ABG Ionized Calcium 1.04 mmol/L (1.15-1.35); ABG Oxygen Saturation 100 % (95-98); ABG PCO2 59 mmHg (35-45); ABG PH 7.27 pH Units (7.32-7.45); ABG PO2 339 mmHg (85-104); ABG TCO2 29 mEq/L (20-26); Blood Gas Modality ASSIST CONTROL; Blood Gas VT 380 cc
[2020-07-23] MEDS ORDERED: Calcium Chloride 2,000 MG in 0.9 % Sodium Chloride 100 ML IVPB ONE (10:55)
[2020-07-23] MEDS ORDERED: 0.9 % Sodium Chloride 500 ML ONE ×2 (11:19→12:14)
[2020-07-23] MEDS: Norepinephrine 16 MG in 0.9 % Sodium Chloride 500 ML IVC SCH ×2 (11:19→19:33)
[2020-07-23] MEDS ORDERED: Protamine Sulfate 50 MG/5 ML VIAL IVP ONE (11:30)
[2020-07-23 11:46] LABS: Mean Corpuscular HGB Conc 25.8 g/dL (31.6-35.5); Mean Corpuscular Volume 100.8 fL (83.0-100.0); Mean Platelet Volume 11.1 fL (9.4-12.4); Nucleated Red Blood Cells 1.6 /100 WBC (0); Platelet Count 291 K/mcL (140-400); Red Blood Count 1.27 M/mcL (3.82-4.97); Red Cell Distribution Width 18.3 % (11.5-14.5); White Blood Count 18.4 K/mcL (4.3-11.1)
[2020-07-23 11:52] LABS: Hemoglobin 3.3 g/dL (11.5-15.4)
[2020-07-23 11:53] LABS: Hematocrit 12.8 % (35.3-44.9); INR 1.7; Prothrombin Time 19.6 Seconds (9.4-12.1)
[2020-07-23] MEDS ORDERED: Vancomycin 2,000 MG/520 ML IV.SOLN IVPB ONE (12:00)
[2020-07-23] MEDS: Midazolam HCl 50 MG/100 ML IV.SOLN IVC SCH ×2 (12:03→14:35)
[2020-07-23 12:05] LABS: Anisocytosis 1+ (Not Present); Lymphocytes # 4.1 K/mcL (0.6-4.6); Monocytes # 1.1 K/mcL (0.0-1.3); Neutrophils # 12.1 K/mcL (1.6-8.9); Platelet Estimate Normal (Normal)
[2020-07-23 12:06] LABS: Hypochromasia Present (Not Present)
[2020-07-23 12:07] LABS: Activated Partial Thrombo Time 123.2 Seconds (26.0-36.0)
[2020-07-23] MEDS ORDERED: 0.9 % Sodium Chloride 250 ML ONE (12:14)
[2020-07-23 12:50] LABS: Albumin 2.6 g/dL (3.5-5.7); Albumin/Globulin Ratio 2.9 (1.1-2.2); Bilirubin,Total 0.3 mg/dL (0.3-1.0); Globulin 0.9 g/dL (2.4-3.5); Total Protein 3.5 g/dL (6.4-8.9); Troponin I 0.12 ng/mL (< 0.04)
[2020-07-23] MEDS ORDERED: Furosemide 40 MG/4 ML VIAL IVP ONE (13:15)
[2020-07-23 13:55] LABS: Calcium 8.4 mg/dL (8.6-10.3); Potassium 4.3 mEq/L (3.5-5.1); Troponin I 0.2 ng/mL (< 0.04)
[2020-07-23 14:03] LABS: INR 2.5; Prothrombin Time 28.4 Seconds (9.4-12.1)
[2020-07-23 14:05] LABS: Activated Partial Thrombo Time 93.7 Seconds (26.0-36.0)
[2020-07-23 14:30] LABS: Albumin 2.6 g/dL (3.5-5.7); Bilirubin,Direct 0.2 mg/dL (0.0-0.2); Bilirubin,Indirect 0.4 mg/dL (0.0-1.0); Bilirubin,Total 0.6 mg/dL (0.3-1.0); Globulin 1.3 g/dL (2.4-3.5); Magnesium 2.1 mg/dL (1.6-2.6); Phosphorous 10.7 mg/dL (2.7-4.5); Total Protein 3.9 g/dL (6.4-8.9)
[2020-07-23] MEDS ORDERED: Calcium Gluconate 1gm/50mL 1 GM/50 ML BAG IVPB SCH (14:30)
[2020-07-23 14:47] LABS: Mean Corpuscular HGB Conc 30.7 g/dL (31.6-35.5)
[2020-07-23 14:48] LABS: Hematocrit 31.3 % (35.3-44.9); Hemoglobin 9.6 g/dL (11.5-15.4); Mean Corpuscular Hemoglobin 28.2 pg (28.0-33.3); Mean Corpuscular Volume 91.8 fL (83.0-100.0); Mean Platelet Volume 11.7 fL (9.4-12.4); Nucleated Red Blood Cells 1.7 /100 WBC (0); Platelet Count 164 K/mcL (140-400); Red Blood Count 3.41 M/mcL (3.82-4.97); Red Cell Distribution Width 16.7 % (11.5-14.5)
[2020-07-23 14:58] LABS: White Blood Count 48.6 K/mcL (4.3-11.1)
[2020-07-23] MEDS ORDERED: CALCIUM CHLORIDE IVPB ONE (15:00)
[2020-07-23] MEDS ORDERED: SODIUM CHLORIDE 0.9% IVPB ONE (15:00)
[2020-07-23 15:34] LABS: Lymphocytes # 2.4 K/mcL (0.6-4.6); Neutrophils # 41.3 K/mcL (1.6-8.9)
[2020-07-23 15:35] LABS: Platelet Estimate Normal (Normal)
[2020-07-23 16:11] LABS: ABG Base Excess 0 mEq/L (-2 to 3); ABG HCO3 31 mEq/L (21-27); ABG Oxygen Saturation 82 % (95-98); ABG PCO2 89 mmHg (35-45); ABG PH 7.15 pH Units (7.32-7.45); ABG PO2 62 mmHg (85-104); ABG TCO2 34 mEq/L (20-26); Blood Gas Modality ASSIST CONTROL; Blood Gas VT 380 cc
[2020-07-23 18:01] LABS: ABG Base Excess 0 mEq/L (-2 to 3); ABG HCO3 30 mEq/L (21-27); ABG Oxygen Saturation 88 % (95-98); ABG PCO2 80 mmHg (35-45); ABG PH 7.18 pH Units (7.32-7.45); ABG PO2 70 mmHg (85-104); ABG TCO2 32 mEq/L (20-26); Blood Gas Modality ASSIST CONTROL; Blood Gas VT 400 cc
[2020-07-23 18:04] LABS: Nucleated Red Blood Cells 3.2 /100 WBC (0)
[2020-07-23 18:06] LABS: Hematocrit 32.7 % (35.3-44.9); Hemoglobin 10.2 g/dL (11.5-15.4); Mean Corpuscular HGB Conc 31.2 g/dL (31.6-35.5); Mean Corpuscular Hemoglobin 28.1 pg (28.0-33.3); Mean Corpuscular Volume 90.1 fL (83.0-100.0); Platelet Count 154 K/mcL (140-400); Red Blood Count 3.63 M/mcL (3.82-4.97)
[2020-07-23 18:11] LABS: White Blood Count 58.1 K/mcL (4.3-11.1)
[2020-07-23 18:23] LABS: INR 2.5; Prothrombin Time 28.4 Seconds (9.4-12.1)
[2020-07-23 18:26] LABS: Activated Partial Thrombo Time 40.1 Seconds (26.0-36.0); Lymphocytes # 1.2 K/mcL (0.6-4.6); Monocytes # 2.3 K/mcL (0.0-1.3); Neutrophils # 47.6 K/mcL (1.6-8.9); Platelet Estimate Normal (Normal)
[2020-07-23 18:27] LABS: Magnesium 2.1 mg/dL (1.6-2.6); Phosphorous 8.2 mg/dL (2.7-4.5)
[2020-07-23 20:58] VITALS: BP 100/58
== END 2020-07-23 21:00 | disposition expired | DRG 208 ==
LOC: 2NENU → ICNU 07-19 10:05
PROVIDERS: ADMIT Family Medicine; ATTEND Family Medicine